=== PATIENT | female | born 1985 | race Caucasian/White ===

== ENCOUNTER 2018-02-03 14:21 | Outpatient (CLI) | payer OTHER ==
[2018-02-03 14:44] LABS: MUDS CUTOFF CONCENTRATIONS CUTOFF CONC BELOW:
[2018-02-03 14:53] LABS: BASOPHILS # (AUTO) 0.1 10^3/uL (0.0-0.1); BASOPHILS % (AUTO) 0.3 %; EOSINOPHILS # (AUTO) 0.1 10^3/uL (0.0-0.7); EOSINOPHILS % (AUTO) 0.4 %; HGB - HEMOGLOBIN 13.6 g/dL (12.0-16.0); LYMPHOCYTES # (AUTO) 2.7 10^3/uL (1.5-3.5); LYMPHOCYTES % (AUTO) 14.9 %; MEAN CORPUSCULAR HGB CONC 34.1 g/dL (32.0-36.0); MEAN CORPUSCULAR VOLUME 93.9 fL (81.0-99.0); MEAN PLATELET VOLUME 7.9 fL (7.9-10.8); MONOCYTES # (AUTO) 1.1 10^3/uL (0.0-1.0); MONOCYTES % (AUTO) 6.2 %; NEUTROPHILS # (AUTO) 13.9 10^3/uL (1.5-6.6); NEUTROPHILS % (AUTO) 78.2 %; PLT - PLATELET COUNT 351 10^3/uL (130-450); RED BLOOD COUNT 4.26 10^6/uL (4.20-5.40); WHITE BLOOD COUNT 17.8 x10^3/uL (4.8-10.8)
[2018-02-03 15:10] LABS: BILIRUBIN,URINE NEGATIVE (NEGATIVE); GLUCOSE, URINE (UA) NEGATIVE (NEGATIVE); KETONES,URINE (UA) NEGATIVE (NEGATIVE); LEUKOCYTE ESTERASE, URINE NEGATIVE (NEGATIVE); NITRITE,URINE NEGATIVE (NEGATIVE); OCCULT BLOOD,URINE NEGATIVE (NEGATIVE); PH,URINE 5.5 PH (5.0-7.5); PROTEIN,URINE NEGATIVE (NEGATIVE); UROBILINOGEN,URINE 0.2 (NORMAL) E.U./dL (NORMAL)
[2018-02-03 15:12] LABS: CLARITY,URINE CLEAR (CLEAR)
[2018-02-03 15:45] LABS: BACTERIA,URINE None Seen /HPF (None Seen); RBC,URINE 0-5 /HPF (0-5); SQUAMOUS EPITHELIAL CELL,UR RARE Squamous (<= Few)
[2018-02-03 15:46] LABS: AMPHETAMINE SCREEN,URINE NEGATIVE (NEGATIVE); BENZODIAZEPINES SCREEN, URINE NEGATIVE (NEGATIVE); COCAINE SCREEN URINE NEGATIVE (NEGATIVE); METHADONE SCREEN, URINE NEGATIVE (NEGATIVE); METHAMPHETAMINES SCREEN, URINE NEGATIVE (NEGATIVE); OPIATE SCREEN, URINE NEGATIVE (NEGATIVE); OXYCODONE SCREEN, URINE NEGATIVE (NEGATIVE); PROPOXYPHENE SCREEN, URINE NEGATIVE (NEGATIVE); TRICYCLIC ANTIDEPRESSANT,URINE NEGATIVE (NEGATIVE)
[2018-02-04 13:22] LABS: HEPATITIS C ANTIBODY NON-REACTIVE (NON-REACTIVE)
[2018-02-04 13:36] LABS: HEPATITIS B SURFACE ANTIGEN NON-REACTIVE (NON-REACTIVE)
[2018-02-04 13:47] LABS: HIV AG/AB 4TH GEN NON-REACTIVE (NON-REACTIVE)
== END 2018-02-03 14:22 | disposition home or self-care (01) ==
LOC: LAB 14:21
PROVIDERS: ATTEND Obstetrics & Gynecology
DX: Z36.9 Encounter for antenatal screening, unspecified (principal)
CPT/HCPCS: 36415; 80306; 81001; 81599; 85025; 86592; 86762; 86803; 86850; 86900; 86901; 87340; 87389

== ENCOUNTER 2018-04-05 12:09 | Outpatient (CLI) | payer SELFPAY | END 2018-04-05 12:10 | disposition home or self-care (01) | LOC: LAB 12:09 | PROVIDERS: ATTEND Obstetrics & Gynecology | DX: Z13.79 Encounter for other screening for genetic and chromosomal anomalies (principal) | CPT/HCPCS: 36415 ==

== ENCOUNTER 2018-04-28 12:27 | Outpatient (CLI) | payer OTHER ==
--- NOTE | 2018-04-28 15:30 | Ultrasound Report ---
Procedure Date: 04/28/2018 Accession Number: [id number] / [id number] Procedure: US - OB Detailed Eval CPT Code: FULL RESULT: EXAM: OB Detailed Eval DATE: 04/28/2018 2:53 PM CLINICAL HISTORY: ENCOUNTER FOR Screening, unspecified TECHNIQUE: Real-time scanning was performed with volunteer patient representative static images obtained. COMPARISON: None LAST MENSTRUAL PERIOD: 12/03/2017 Clinical Age: 20 weeks 6 days US Age: 21 weeks 2 days EFW Hadlock: 427 grams EFW % Hadlock: 77% Heart Rate: 161 bpm EDC: 09/09/2018 US EDC: 09/06/2018 BPD Hadlock: 20 weeks 6 days; Mean mm 49 HC Hadlock: 21 weeks 4 days; Mean mm 193 AC Hadlock: 21 weeks 6 days; Mean mm 169 FL Hadlock: 21 weeks 0 days; Mean mm 35 Presentation: Breech Placental Location: Posterior Cervical Length: 5.1 cm Amniotic Fluid: FROYLAN Subjectively normal cm; MVP 3.6 cm FINDINGS: Live intrauterine gestation with a heart rate of 161 bpm and a gestational age of 21 weeks and 2 days by size criteria. The placenta is low lying. The following anatomic structures were visualized and appear normal: The intracranial contents, including the ventricles and posterior fossa; the lips and orbits; the spine; the heart, including 4 chamber view and left outflow tract, and diaphragm; the abdominal contents, including the stomach, the bilateral kidneys, and urinary bladder, as well as a normal 3-vessel cord insertion; 4 limbs. The right ventricular outflow tract could not be visualized. IMPRESSION: Live intrauterine gestation of 21 weeks and 2 days by size criteria. Low-lying placenta. Follow-up imaging in the third trimester is recommended.
== END 2018-04-28 12:28 | disposition home or self-care (01) ==
LOC: DI 12:27
PROVIDERS: ATTEND Obstetrics & Gynecology
DX: Z36.9 Encounter for antenatal screening, unspecified (principal); O44.42 Low lying placenta NOS or without hemorrhage, second trimester; Z3A.21 21 weeks gestation of pregnancy
CPT/HCPCS: 76811

== ENCOUNTER 2018-07-05 11:34 | Outpatient (CLI) | payer OTHER ==
--- NOTE | 2018-07-11 08:59 | Ultrasound Report ---
Reason: 28 WEEKS GESTATION, COMPLETION OF FAS Procedure Date: 07/05/2018 Accession Number: [id number] / [id number] Procedure: US - OB F/U or Repeat CPT Code: FULL RESULT: EXAM: COMPLETE OBSTETRICAL ULTRASOUND EXAM DATE: 07/05/2018 01:06 PM. CLINICAL HISTORY: Completion of anatomic survey. LMP 12/03/2017. COMPARISON: 04/28/2018. TECHNIQUE: Real-time sonographic evaluation of the fetus performed by the corporate affairs manager. Multiple lead generation representative static images were saved for review. DATING: Established EGA 30 weeks 4 days with SAMPSON 09/09/2018 based on LMP. EGA 31 weeks 0 days with SAMPSON 09/06/2018 based on ultrasound performed on 04/28/2018. EGA 32 weeks 2 days with SAMPSON 08/28/2018 based on the current ultrasound. GENERAL EVALUATION Silverman . Cardiac activity: 142 bpm. Presentation: Cephalic. Placenta: Posterior position. No placenta previa demonstrated. Lower margin of the placenta is approximately 3.9 cm from the internal cervical os. Amniotic fluid: Normal, FROYLAN 12.7 MVP 5.0 cm. BIOMETRY Bi-Parietal Diameter (BPD): 8.0 cm, 32 weeks 2 days Head Circumference (HC): 30.0 cm, 33 weeks 1 day Abdominal Circumference (AC): 28.1 cm, 32 weeks 0 days Femur Length (FL): 6.0 cm, 31 weeks 1 day Estimated Weight: 1884 gm, 70th percentile for LMP. ANATOMY The right ventricular outflow track again cannot be visualized, secondary to positioning. MATERNAL STRUCTURES Uterus: Unremarkable. Cervix: Long and closed. Transabdominal length 5.0 cm. Right ovary/adnexa: Unremarkable. Left ovary/adnexa: Unremarkable. Free fluid: None. IMPRESSION: 1. Silverman live intrauterine with gestational age 32 weeks 2 days with SAMPSON 08/28/2018 based on current ultrasound which compares with the established SAMPSON of 09/09/2018 by LMP. 2. Estimated Weight: 1884 gm, 70th percentile for LMP. 3. right ventricular outflow track again not visualized, due to positioning. Follow-up additional views could be obtained to reassess. RAYSA
== END 2018-07-05 11:35 | disposition home or self-care (01) ==
LOC: DI 11:34
PROVIDERS: ATTEND Obstetrics & Gynecology
DX: Z34.90 Encounter for supervision of normal pregnancy, unspecified, unspecified trimester (principal); Z3A.28 28 weeks gestation of pregnancy
CPT/HCPCS: 36415; 76816; 82950; 85027; 86850

== ENCOUNTER 2018-07-05 13:04 | Outpatient (CLI) | payer OTHER ==
[2018-07-05 14:54] LABS: HGB - HEMOGLOBIN 13.1 g/dL (12.0-16.0); MEAN CORPUSCULAR HEMOGLOBIN 32.7 pg (27.0-31.0); MEAN CORPUSCULAR HGB CONC 34.2 g/dL (32.0-36.0); MEAN CORPUSCULAR VOLUME 95.7 fL (81.0-99.0); MEAN PLATELET VOLUME 7.4 fL (7.9-10.8); RED CELL DISTRIBUTION WIDTH 14.6 % (12.0-15.0); WHITE BLOOD COUNT 14.3 x10^3/uL (4.8-10.8)
== END 2018-07-05 13:05 | disposition home or self-care (01) ==
LOC: LAB 13:04
PROVIDERS: ATTEND Obstetrics & Gynecology
DX: Z34.90 Encounter for supervision of normal pregnancy, unspecified, unspecified trimester (principal)
CPT/HCPCS: 36415; 82950; 85027; 86850

== ENCOUNTER → 2018-08-09 | Outpatient (CLI) | payer OTHER | LOC: LAB.R 08:00 | PROVIDERS: ATTEND Obstetrics & Gynecology | DX: Z36.9 Encounter for antenatal screening, unspecified (principal); O60.00 Preterm labor without delivery, unspecified trimester | CPT/HCPCS: 82731; 87081 ==

== ENCOUNTER 2018-09-09 01:17 | Inpatient (IN) | payer OTHER ==
[2018-09-09 02:11] LABS: RUPTURE OF MEMBRANES PLUS POSITIVE (NEGATIVE)
[2018-09-09] MEDS ORDERED: ONDANSETRON 4 MG/2 ML VIAL IVP PRN ×2 (02:19→04:44)
[2018-09-09] MEDS ORDERED: fentaNYL 100 MCG/2 ML VIAL IVP PRN (02:19)
[2018-09-09] MEDS ORDERED: SODIUM CHLORIDE FLUSH 0.9% 10 ML SYRINGE ONE (02:31)
[2018-09-09] MEDS: LACTATED RINGERS 1,000 ML IV SCH ×5 (02:50→18:33)
[2018-09-09 02:58] LABS: BASOPHILS # (AUTO) 0.1 10^3/uL (0.0-0.1); BASOPHILS % (AUTO) 0.4 %; EOSINOPHILS # (AUTO) 0.1 10^3/uL (0.0-0.7); EOSINOPHILS % (AUTO) 0.6 %; HGB - HEMOGLOBIN 13.9 g/dL (12.0-16.0); LYMPHOCYTES # (AUTO) 2.5 10^3/uL (1.5-3.5); LYMPHOCYTES % (AUTO) 17.9 %; MEAN CORPUSCULAR HEMOGLOBIN 33.1 pg (27.0-31.0); MEAN CORPUSCULAR HGB CONC 35.1 g/dL (32.0-36.0); MEAN CORPUSCULAR VOLUME 94.5 fL (81.0-99.0); MEAN PLATELET VOLUME 8.2 fL (7.9-10.8); MONOCYTES # (AUTO) 1.1 10^3/uL (0.0-1.0); MONOCYTES % (AUTO) 7.8 %; NEUTROPHILS # (AUTO) 10.1 10^3/uL (1.5-6.6); NEUTROPHILS % (AUTO) 73.3 %; PLT - PLATELET COUNT 268 10^3/uL (130-450); RED BLOOD COUNT 4.19 10^6/uL (4.20-5.40); RED CELL DISTRIBUTION WIDTH 14.4 % (12.0-15.0); WHITE BLOOD COUNT 13.8 x10^3/uL (4.8-10.8)
[2018-09-09] MEDS ORDERED: OXYTOCIN/SODIUM CHLORIDE 500 ML IV SCH (03:00)
[2018-09-09] MEDS ORDERED: fent/BUPIV 2 MCG/0.125% 250 ML EP ONE ×3 (03:34→20:08)
[2018-09-09] MEDS ORDERED: ROPIVACAINE 0.2% PF 20 ML AMPULE ONE ×3 (04:07→18:53)
[2018-09-09] MEDS ORDERED: LACTATED RINGERS 500 ML IV ONE (04:44)
[2018-09-09] MEDS ORDERED: NALOXONE 0.4 MG/ML VIAL IVP PRN (04:44)
[2018-09-09] MEDS ORDERED: NALBUPHINE 10 MG/ML AMP IVP PRN (04:44)
[2018-09-09] MEDS ORDERED: ePHEDrine 50 MG/ML VIAL IVP PRN (04:44)
[2018-09-09] MEDS ORDERED: METOCLOPRAMIDE 10 MG/2 ML VIAL IVP PRN (04:44)
[2018-09-09] MEDS ORDERED: diphenhydrAMINE INJ 50 MG/ML VIAL IVP PRN (04:44)
[2018-09-09] MEDS: OXYTOCIN/SODIUM CHLORIDE 500 ML IV SCH (05:59)
--- NOTE | 2018-09-09 07:11 | HISTORY & PHYSICAL EXAMINATION ---
DATE OF SERVICE: 09/09/2018 Physician: Rashad Heck MD DIAGNOSIS: Term (40 weeks 0 days) in labor. HISTORY OF PRESENT ILLNESS: The patient is a 33-year-old primigravida at 40 weeks and 0 da ys gestation based on certain LMP of 12/03/2016, yielding an EDC of 09/09/2018, that was confirmed by 8-week ultrasound. She [facility] with a total of 12 visits. This morning, she reported possible early leaking, but definitely ruptured her membranes at 0050 hours th is morning with concomitant contractions. She reports no fevers or chills, recent illness or signs o r symptoms of preeclampsia. Initially, she was very uncomfortable and epidural ordered. LABS: Blood type A positive, antibody screen negative. RPR negative, rubella immune, hepat itis B antigen negative, GBS negative. Glucose challenge test normal at 117, 28-week hemoglobin 13. 1. The patient's course was unremarkable. A 20-week ultrasound showed a low-lying placenta without previa, but did not visualize a right ventricular outflow tract. Followup ultrasound confir med normal anatomy. PAST MEDICAL HISTORY: No chronic disease history. PAST SURGICAL HISTORY: No surgical history. ALLERGIES: NO KNOWN DRUG ALLERGIES. MEDICATIONS: vitamins with iron. FAMILY HISTORY: No congenital anomalies or inheritable diseases. SOCIAL HISTORY: Reformed smoker, quit 5 years ago. No drug or tobacco use. Stable relationship. F ather of the baby Felix Alfonso. REVIEW OF SYSTEMS: CONSTITUTIONAL: Negative. HEENT: Negative. CARDIOVASCULAR: Heart negative. RESPIRATORY: Lungs negative. GASTROINTESTINAL: Negative. GENITOURINARY: Reference HPI and record. MUSCULOSKELETAL: Negative. NEUROLOGIC: Negative. LYMPHATIC/HEMATOLOGIC: Negative. PHYSICAL EXAMINATION: GENERAL: Currently, lying comfortably in bed with the father of baby in attendance. VITAL SIGNS: T-max 98.1, blood pressure 149/76, but stabilized 117/67, respirations 18, pulse satura tion 100. HEENT: Supple neck. EOMI. No icterus. Normal thyroid. Normal dentition. CARDIAC: Regular, no murmur. No gallop. BREASTS: Deferred. ABDOMEN: Soft, nontender. No right upper quadrant or epigastric tenderness. UTERUS: Minimal intensity contractions every 3-4 minutes. Normal resting tone. No point tenderness . Fetus confirmed in vertex presentation. Estimated weight 8-8-1/2 pounds. GENITALIA: No lesions. VAGINA: Clear, nonfoul amniotic fluid. Cervix 100% effaced, 1.5 cm, -2 station, suspect OP. BONY PELVIS: Average gynecoid. Normal spines. OBSTETRICAL: Conjugate 12.5 x 2, burst diameter 10.5. EXTREMITIES: Nonedematous. No calf tenderness. NEUROLOGIC: Patellar reflexes 3+ and equal. No clonus. SKIN: Warm and dry. No rashes or lesions found. LABORATORIES: Admission hemoglobin 13.9 with white count of 13.8, platelets of 268. ASSESSMENT: This is a term , in labor, with very mild contractions and will require augment ation to achieve forward progress. Anticipate the pelvis is adequate for 8-pound fetus. Possibly oc ciput posterior position may make the labor and delivery a bit more difficult. PLAN: 1. Continue epidural. 2. Supportive care. 3. Augmentation. TD: 09/09/2018 05:07
[2018-09-09] MEDS ORDERED: LIDOCAINE 1% 50 ML MDV ONE (11:50)
[2018-09-09] MEDS ORDERED: MINERAL OIL LIGHT 10 ML MC ONE (11:50)
[2018-09-09] MEDS ORDERED: ACETAMINOPHEN 325 MG TABLET PO PRN (13:28)
--- NOTE | 2018-09-09 15:46 | PROVIDER PROGRESS NOTE ---
Labor Progress Note - Uterine Monitoring Uterine Monitoring Mode: positive: External toco Contraction Frequency (min/apart): Every 2.5-3 minutes Contraction Intensity: positive: Moderate (Patient with augmented labor Pitocin level 4 units) Uterine Resting Tone: positive: Soft - Monitoring Monitor Mode: positive: External ultrasound Heart Rate Baseline: 130 Heart Rate Variability: positive: Absent; amplitude undetectable Accelerations: positive: Present, 15x15 Decelerations: positive: None - Vaginal Exam Dilation (in cm): 6 Effacement (%): 100% Station: -1 Cervical Position: Midposition (ROP presentation) - Labor Progress Note Labor Progress Note/Additional Text: Patient has excellent epidural pain relief. Anticipate the head to correct to an OA once descent occurs beyond the spines. If not will do manual rotation maneuver. Discussed situation with family and nursing staff. Clinically patient has adequate labor pattern and there are no concerns about well- being based on the tracing.
[2018-09-09] MEDS ORDERED: fentaNYL 100 MCG/2 ML VIAL ONE (18:45)
--- NOTE | 2018-09-09 19:49 | PROVIDER PROGRESS NOTE ---
Labor Progress Note - Uterine Monitoring Uterine Monitoring Mode: positive: External toco Contraction Intensity: positive: Moderate Uterine Resting Tone: positive: Soft - Monitoring Monitor Mode: positive: External ultrasound Heart Rate Baseline: 135 Heart Rate Variability: positive: Moderate (6-25 bmp) Accelerations: positive: Present, 15x15 Decelerations: positive: None, Early Strip Review: positive: Category I - Vaginal Exam Dilation (in cm): 8-9 Effacement (%): 100% Station: 1 Cervical Position: Anterior - Labor Progress Note Labor Progress Note/Additional Text: Patient making forward progress with augmentation. Descent of the vertex is encouraging. No concerns about well-being based on heart tracing. However, there is light meconium and therefore RT will attend the delivery.
--- NOTE | 2018-09-09 22:25 | PROVIDER PROGRESS NOTE ---
Labor Progress Note - Uterine Monitoring Uterine Monitoring Mode: positive: External toco Contraction Frequency (min/apart): Every 3 minutes Contraction Intensity: positive: Moderate Uterine Resting Tone: positive: Soft - Monitoring Monitor Mode: positive: External ultrasound Heart Rate Baseline: [id number] Heart Rate Variability: positive: Minimal (0-5 bpm) (Recently variability decreased from moderate to minimal then back to moderate), Moderate (6-25 bmp) Accelerations: positive: Present, 15x15 Decelerations: positive: Early Strip Review: positive: Category II - Vaginal Exam Dilation (in cm): 10 Effacement (%): 100% Station: 2 Cervical Position: Anterior - Labor Progress Note Labor Progress Note/Additional Text: Patient is progressing slowly by laboring down. External monitor tracing has changed to category 2, which prompts us to begin pushing. Reviewed pushing techniques with the patient and . Due to light meconium respiratory therapy will be on standby.
[2018-09-09] MEDS ORDERED: ZOLPIDEM 5 MG TABLET PO PRN (22:28)
[2018-09-09] MEDS ORDERED: diphenhydrAMINE 25 MG CAPSULE PO PRN (22:28)
[2018-09-09] MEDS ORDERED: LACTATED RINGERS 1,000 ML IV SCH (23:00)
--- NOTE | 2018-09-09 23:37 | PROVIDER PROGRESS NOTE ---
Labor Progress Note - Uterine Monitoring Contraction Frequency (min/apart): Every 2.5-3 minutes Contraction Intensity: positive: Moderate Uterine Resting Tone: positive: Soft - Monitoring Monitor Mode: positive: External ultrasound Heart Rate Baseline: [id number] Heart Rate Variability: positive: Minimal (0-5 bpm) Accelerations: positive: Present, 15x15 Decelerations: positive: Early Strip Review: positive: Category II - Vaginal Exam Dilation (in cm): 10 Effacement (%): 100% Station: 2 (Moderate amount of caput swelling; presentation seems OA currently;) Cervical Position: Anterior - Labor Progress Note Labor Progress Note/Additional Text: Patient has pushed with excellent effort and has been well coached by nursing and her . The head is not appreciably advanced beyond +2 station and a moderate amount of It is now forming. heart tones occasionally have minimal variability but due to respond to scalp stim. Continued labor and pushing may challenge reserve. Fluid is mild meconium and has a pungent smell that was not present on presentation/admission. Patient may benefit with vacuum delivery or forceps. Prior to instrumental delivery I would like to alert pediatrics. If strip degenerates will moved to instrumental delivery immediately and alert OR team.
[2018-09-10] MEDS ORDERED: CITRIC ACID/SODIUM CITRATE 15 ML UDC PO ONE (00:39)
[2018-09-10] MEDS ORDERED: LACTATED RINGERS 1,000 ML IV ONE ×3 (00:40→02:03)
[2018-09-10] MEDS ORDERED: ceFAZolin 3 GM in SODIUM CHLORIDE 0.9% 100ML 100 ML IV ONE (00:43)
[2018-09-10] MEDS: CITRIC ACID/SODIUM CITRATE 15 ML UDC PO ONE (00:45)
[2018-09-10] MEDS ORDERED: ceFAZolin 1 GM VIAL ONE ×2 (00:46→00:47)
[2018-09-10] MEDS ORDERED: ceFAZolin 2 GM/50 ML 0 GM/0 ML BAG IV ONE (00:46)
[2018-09-10] MEDS ORDERED: METHYLERGONOVINE 0.2 MG/ML AMP IVP ONE ×2 (02:10)
[2018-09-10] MEDS ORDERED: SODIUM CHLORIDE FLUSH 0.9% 10 ML SYRINGE IVP PRN (02:10)
[2018-09-10] MEDS ORDERED: HYDROCORTISONE/PRAMOXINE 10 GM PR PRN (02:10)
[2018-09-10] MEDS ORDERED: CARBOPROST TROMETHAMINE 250 MCG/ML AMP IM ONE ×3 (02:10)
[2018-09-10] MEDS ORDERED: WITCH HAZEL/GLYCERIN 1 EACH MED..PAD TOP PRN (02:10)
[2018-09-10] MEDS ORDERED: miSOPROStol 200 MCG TABLET PO ONE (02:10)
--- NOTE | 2018-09-10 02:18 | OPERATIVE REPORT ---
Operative Report - General Admit Date: 09/09/18 Planned Procedure: Primary section if vacuum delivery trial Fails Pre-Op Diagnosis: 40w EGA; Meconium and labor; Arrested descent in 2nd Stage; EFM Tachy Procedure Performed: Primary lower segment transverse section; Abandoned low vacuum delivery without rotation Post Op Diagnosis: Same as above await placental pathology - Procedure Note Primary Surgeon: Rashad Heck MD, FACOG, FICS Secondary Surgeon: Kenia Caceres, certified nurse assistant head cashier Anesthesia Provider: Angelika Knutson certified nurse strapper and buffer Anesthesia Technique: Epidural Pathology: Placenta sent to pathology to rule out chorion amnionitis IV Fluids (mL): 1,500 Estimated Blood Loss (mL): 1,500 Urine Output (mL): 120 Drain/Tube Type: Other (Hutchinson catheter; Wound VAC) Complications: Uterne Atony
[2018-09-10] MEDS ORDERED: KETOROLAC 30 MG/ML VIAL IVP ONE (02:30)
[2018-09-10] MEDS: LACTATED RINGERS 1,000 ML IV SCH ×2 (03:45→11:59)
[2018-09-10] MEDS: SIMETHICONE CHEW 80 MG TABLET PO SCH ×3 (06:25→20:34)
[2018-09-10] MEDS: ACETAMINOPHEN 500 MG TABLET PO SCH ×2 (08:15→16:47)
[2018-09-10] MEDS: IBUPROFEN 600 MG TABLET PO SCH ×4 (08:16→20:34)
[2018-09-10] MEDS: DOCUSATE SODIUM 100 MG CAPSULE PO SCH ×2 (08:16→20:34)
[2018-09-10 08:25] LABS: BASOPHILS % (AUTO) 0.1 %; EOSINOPHILS # (AUTO) 0.1 10^3/uL (0.0-0.7); EOSINOPHILS % (AUTO) 0.4 %; HGB - HEMOGLOBIN 9.2 g/dL (12.0-16.0); LYMPHOCYTES # (AUTO) 1.6 10^3/uL (1.5-3.5); LYMPHOCYTES % (AUTO) 7.4 %; MEAN CORPUSCULAR HEMOGLOBIN 33.2 pg (27.0-31.0); MEAN CORPUSCULAR HGB CONC 34.5 g/dL (32.0-36.0); MEAN CORPUSCULAR VOLUME 96.2 fL (81.0-99.0); MEAN PLATELET VOLUME 7.8 fL (7.9-10.8); MONOCYTES # (AUTO) 1.5 10^3/uL (0.0-1.0); MONOCYTES % (AUTO) 6.9 %; NEUTROPHILS # (AUTO) 18.8 10^3/uL (1.5-6.6); NEUTROPHILS % (AUTO) 85.2 %; PLT - PLATELET COUNT 189 10^3/uL (130-450); RED BLOOD COUNT 2.77 10^6/uL (4.20-5.40); RED CELL DISTRIBUTION WIDTH 14.5 % (12.0-15.0)
--- NOTE | 2018-09-10 08:25 | OPERATIVE REPORT ---
DATE OF SERVICE: 09/10/2018 Physician: Rashad Heck MD PREOPERATIVE DIAGNOSES: 1. 40-week gestation; 2. Ruptured membranes w light meconium, possible prolonged rupture; 3. Arrest of descent in the second stage of labor; 4. Abandoned low vacuum attempt. POSTOPERATIVE DIAGNOSES: 1. Same as above 2. macrosomia 3. Moderate meconium PROCEDURE: Primary lower segment transverse section yielding a living male infant; Abandoned low vacuum delivery; Await pathology report. SURGEON: Rashad Heck MD, FACOG, FICS GAS SINGER: Kenia Caceres, Certified Nurse Cashier General. ANESTHESIA TYPE/PROVIDER: Epidural. Angelika Knutson, Certified Nurse Central Office Operator. SCANNING TECH: Dr. Angelika Harrison, Pediatrics PATHOLOGY: Placenta sent for analysis. IV FLUIDS: 1500. ESTIMATED BLOOD LOSS: 1500 to 1600 URINE OUTPUT: 120, some blood streaking. DRAINS 1. Hutchinson catheter to gravity. 2. Wound VAC. COMPLICATIONS: Uterine atony. FINDINGS: 1. At 0114 hours, a living male was born scoring Apgars of 8/9. He weighed 4173grams (9 pounds 3.2 ounces). Arterial cord pH 7.36, base excess - 3.4, venous cord pH 7.24, base excess -4.2. Fetus was born from the OA position. There was no obvious trauma or congenital anomalies. Dr. Angelika Harrison was in attendance. Placenta was removed intact with three-vessel cord. Cord entanglement was not a factor. Placenta was grade 2 without any evidence of abruption. There was no meconium staining; however, there was moderate meconium present. The amniotic fluid had a pungent smell. Cultures of the amniotic side of the placenta were taken. 2. Both tubes and ovaries appeared to be normal. Ovaries had cystic and decidual activity present. There was no scarification of the tubes or for that matter intraabdominal adhesions. The myometrium was without fibroids, but hyperemic and warm. The uterus did not respond to massage and remained atonic. Hemabate was given IM and afterwards the uterus slowly responded. TECHNIQUE: Prior to initiating section, a vacuum trial was performed. Prior to the trial, I reviewed the risks and benefits including possibility of increased blood loss, transfusion, infection, shoulder dystocia, traumatic and need for episiotomy or vaginal laceration. The major advantage would be to salvage a vaginal delivery to prevent the need for future repeat sections. After explanation and brief discussion, and the patient gave her verbal consent. Prior to the vacuum trial, Pediatrics. assistant golf course superintendent, OR crew and Anesthesiahad been called in . All parties were in the house and ready in case the vacuum trial failed. The was assessed and felt to be 8 pounds in weight. The head was originally in ROP, but during the second stage, I had rotated it manually to the OA. There was good flexion. heart tones were in the 160s to 165 with minimal / diminished variability. The patient had good reserve. she was willing and felt capable to push and assist in the delivery. Once again, the pelvis was assessed and not felt to be contracted. OB conjugate was +12.5, bituberous diameter +10.5. Normal arch and spines. A Kiwi vacuum cup was placed on the flexion point. Station was +2 and dilation complete. A moderate amount of traction was placed respecting the axis of the maternal bony pelvis. Traction did not produce the expected descent. Two pulls were attempted and the trial abandoned in favor of section. Decision to perform section was at 0035. The patient was prepped with Hutchinson catheter, Bicitra, and informed consent reviewed. 2 units of packed red blood cells were placed on hold. Again, the patient was aware of possibility of bleeding with transfusion, infection, damage to bladder, bowel or reproductive tract. Informed consent paperwork was signed. The patient was brought to the operating room and placed in the supine position on the OR table. Anesthesia redosed through her epidural catheter. She was prepped and draped in the customary sterile fashion. A timeout briefing was done per protocol. Father was brought into the room to attend to the patient. A curvilinear incision was made and the abdominal wall opened uneventfully with Pfannenstiel incision. There were numerous small bleeders that were clamped and cauterized. Once inside of the abdomen, the position of the fetus was assessed. Bladder flap was developed with Metzenbaum scissors. Note, the bladder was quite high. Afterwards, the hysterotomy was made with a scalpel. At the time of amniotic membrane entry, moderate meconium spilled forth, and the fluid seemed to have a pungent smell. Life Educator secured the vertex with right hand, then guided it through the hysterotomy and laparotomy wound with the aid of fundal pressure provided by the machine operator assistant. Shoulders were atraumatically delivered. Cord was doubly clamped, transected. Cord blood and cord gas samples were sent. The was handed to the awaiting tool design drafter. The uterus was exteriorized and inspected. There was a significant atony, and therefore immediate dose of Hemabate was given, followed by another within 15 minutes. The uterus slowly responded to Hemabate and massage. The hysterotomy wound was closed in 2 parts, first with an interlocking stitch of 0 Vicryl, followed by an imbricating stitch of 0 Vicryl in a Cardinal fashion. During the delivery & closure procedure, the OR lights went out on 4 occasions. Lights were recovered within 30 seconds or less in each event. We continued our forward progress. The uterus was inspected and the abdominal cavity was lavaged with warm normal saline. Bladder flap was not closed because of the high-riding bladder posing a hazard for the next surgeon. The uterus was returned to its normal position. Colic gutters were inspected as well as all operative sites. All sites were secure. Abdominal peritoneum was closed with a running suture of 2-0 chromic. Rectus muscle was tacked together in 3 locations with 0 Vicryl. Fascia was closed with a running stitch of 0 Vicryl in 2 parts. Subcuticular space was closed with interrupted sutures of 2-0 chromic. Skin was closed loosely with a subcuticular stitch of 4-0 Monocryl. The skin wound was dressed with a wound VAC. At the end of the closure, all sponge, needle, and instrument counts were confirmed as correct. Patient was uneventfully aroused and taken to the recovery room in good condition. Anticipate patient to be anemic and therefore, there are 2 units of packed red blood cells on hold. Additionally, we will continue Ancef 2 grams every 8 hours for at least 24 more hours. Discussed the findings with Dr. Harrison, who will manage a workup of the fetus as necessary. TD: 09/10/2018 02:59 [facility] CENTERMyrtle
[2018-09-10] MEDS: SODIUM CHLORIDE FLUSH 0.9% 10 ML SYRINGE IVP PRN ×3 (08:29→10:36)
[2018-09-10 09:07] LABS: PLATELET ESTIMATE, MANUAL NORMAL (130-450,000) (NORMAL); RBC MORPHOLOGY (MULTIPLE) NORMAL APPEARANCE (NORMAL)
[2018-09-10] MEDS: ceFAZolin 2 GM in SODIUM CHLORIDE 0.9% MINIBAG 100 ML IV SCH ×2 (10:01→19:27)
[2018-09-10] MEDS: OXYTOCIN/SODIUM CHLORIDE 500 ML IV SCH (10:16)
[2018-09-10] MEDS: SODIUM CHLORIDE FLUSH 0.9% 10 ML SYRINGE IVP SCH (10:17)
[2018-09-10] MEDS: oxyCODONE 5 MG TABLET PO PRN (14:21)
[2018-09-10] MEDS: HYDROcod/ACETAM 5/325 MG TABLET PO PRN ×2 (19:27→23:10)
[2018-09-11] MEDS: ceFAZolin 2 GM in SODIUM CHLORIDE 0.9% MINIBAG 100 ML IV SCH ×2 (02:49→10:13)
[2018-09-11] MEDS: HYDROcod/ACETAM 5/325 MG TABLET PO PRN ×4 (02:49→14:01)
[2018-09-11] MEDS: IBUPROFEN 600 MG TABLET PO SCH ×4 (02:49→21:12)
[2018-09-11] MEDS: ACETAMINOPHEN 500 MG TABLET PO SCH ×2 (05:50→18:09)
[2018-09-11] MEDS: SIMETHICONE CHEW 80 MG TABLET PO SCH ×3 (06:19→18:09)
[2018-09-11 08:12] LABS: BASOPHILS % (AUTO) 0.2 %; EOSINOPHILS # (AUTO) 0.2 10^3/uL (0.0-0.7); EOSINOPHILS % (AUTO) 1.5 %; HGB - HEMOGLOBIN 8.6 g/dL (12.0-16.0); LYMPHOCYTES # (AUTO) 2.3 10^3/uL (1.5-3.5); LYMPHOCYTES % (AUTO) 15.3 %; MEAN CORPUSCULAR HEMOGLOBIN 33.6 pg (27.0-31.0); MEAN CORPUSCULAR VOLUME 95.8 fL (81.0-99.0); MEAN PLATELET VOLUME 7.7 fL (7.9-10.8); MONOCYTES # (AUTO) 0.8 10^3/uL (0.0-1.0); MONOCYTES % (AUTO) 5.3 %; NEUTROPHILS # (AUTO) 11.6 10^3/uL (1.5-6.6); NEUTROPHILS % (AUTO) 77.7 %; PLT - PLATELET COUNT 196 10^3/uL (130-450); RED BLOOD COUNT 2.55 10^6/uL (4.20-5.40); RED CELL DISTRIBUTION WIDTH 14.4 % (12.0-15.0); WHITE BLOOD COUNT 14.9 x10^3/uL (4.8-10.8)
[2018-09-11 08:25] LABS: ALBUMIN 2.1 g/dL (3.2-5.5); ALBUMIN/GLOBULIN RATIO 0.8 (1.0-2.2); BILIRUBIN,TOTAL 0.2 mg/dL (0.2-1.0); CREATININE 0.7 mg/dL (0.4-1.0); TOTAL PROTEIN 4.6 g/dL (6.7-8.2)
[2018-09-11] MEDS: DOCUSATE SODIUM 100 MG CAPSULE PO SCH (09:02)
--- NOTE | 2018-09-11 09:17 | ANESTHESIA POST OP EVALUATION ---
Anesthesia Post Eval - Post Anesthesia Eval Pain Control: positive: Adequate Nausea & Vomiting: positive: Negative Mental Status: positive: Appropriate Anesthesia Complications: positive: None (Patient doing well, minimal incisional pain. I explained some low back tenderness is common after epidural for a few days, denies headache. Site clear, epidural was D/C in OR immediately after surgery by me with tip intact.)
[2018-09-11] MEDS: SODIUM CHLORIDE FLUSH 0.9% 10 ML SYRINGE IVP SCH (10:14)
--- NOTE | 2018-09-11 12:30 | PROVIDER PROGRESS NOTE ---
Subjective - General Admit Date: 09/09/18 Procedure Date: 09/10/18 Post Op Days: 1 Procedure Performed: Primary section, prior vacuum attempt - Review of Systems Wound/Incisions: positive: Dressing dry and intact, Other (Wound VAC operable) Drain Type: Hutchinson already discontinued General: positive: No symptoms, Other (Slowly regaining normal function, happy) HEENT: positive: No symptoms Pulmonary: positive: No symptoms Cardiovascular: positive: No symptoms Gastrointestinal: positive: No symptoms, Flatus Genitourinary: positive: Other (Mild non-foul lochia) Musculoskeletal: positive: No symptoms Skin: positive: No symptoms Neurological: Psychiatric: positive: No symptoms - Other Other Information/Narrative: Overall patient feels well on postoperative day 1. Her pain is controlled with combination of oral Motrin and [place]. She is nursing with out difficulty. She is ambulated about the room. She has no fevers chills, chest pain, or shortness of breath. Baby boy is doing well and is not required continued IV antibiotics. Maternal extended antibiotic was discontinued with 10 AM dose. Objective - Patient Data Vital Signs: Vital Signs x48h Temp Pulse Resp BP Pulse Ox 09/11/18 08:00 98.2 F 81 16 121/66 98 Weight: Weight 09/09/18 09/10/18 09/11/18 23:59 23:59 23:59 Weight (kg) 91.172 kg Intake & Output: Intake and Output Totals x24h 09/09/18 09/10/18 09/11/18 23:59 23:59 23:59 Intake Total 4227.5 2100 100 Output Total 2120 3940 450 Balance 2107.5 -1840 -350 - Lab Results Lab Results: 09/11/18 08:09 09/11/18 08:09 Other Lab Results: Lab Results x24hrs 09/11/18 09/11/18 Range/Units 08:09 08:09 WBC 14.9 H (4.8-10.8) x10^3/uL RBC 2.55 L (4.20-5.40) 10^6/uL Hgb 8.6 L (12.0-16.0) g/dL Hct 24.5 L (37.0-47.0) % MCV 95.8 (81.0-99.0) fL MCH 33.6 H (27.0-31.0) pg MCHC 35.0 (32.0-36.0) g/dL RDW 14.4 (12.0-15.0) % Plt Count 196 (130-450) 10^3/uL MPV 7.7 L (7.9-10.8) fL Neut # (Auto) 11.6 H (1.5-6.6) 10^3/uL Lymph # (Auto) 2.3 (1.5-3.5) 10^3/uL [place] # (Auto) 0.8 (0.0-1.0) 10^3/uL Eos # (Auto) 0.2 (0.0-0.7) 10^3/uL Baso # (Auto) 0.0 (0.0-0.1) 10^3/uL Absolute Nucleated RBC 0.00 x10^3/uL Nucleated RBC % 0.0 /100WBC Sodium 136 (135-145) mmol/L Potassium 3.6 (3.5-5.0) mmol/L Chloride 105 (101-111) mmol/L Carbon Dioxide 26 (21-32) mmol/L Anion Gap 5.0 L (6-13) BUN 6 (6-20) mg/dL Creatinine 0.7 (0.4-1.0) mg/dL Estimated GFR (MDRD) 98 (>89) Glucose 77 (70-100) mg/dL Calcium 8.0 L (8.5-10.3) mg/dL Total Bilirubin 0.2 (0.2-1.0) mg/dL AST 27 (10-42) IU/L ALT 13 (10-60) IU/L Alkaline Phosphatase 70 (42-121) IU/L Total Protein 4.6 L (6.7-8.2) g/dL Albumin 2.1 L (3.2-5.5) g/dL Globulin 2.5 (2.1-4.2) g/dL Albumin/Globulin Ratio 0.8 L (1.0-2.2) - Current Medications Current Medications: Current Medications Generic Name Dose Route Start Last Admin Trade Name Freq PRN Reason Stop Dose Admin Acetaminophen 650 mg 09/09/18 13:28 09/09/18 13:49 Tylenol PO 650 mg Q6H PRN Administration Pain or Fever > 38C (100.4F) Acetaminophen 1,000 mg 09/10/18 03:00 09/11/18 05:50 Tylenol PO Not Given Q8H STEPHANI Hydrocodone Bitart/Acetaminophen 1 tab 09/09/18 22:28 09/11/18 10:13 [place] 5/325 PO 1 tab Q4HR PRN Administration MILD PAIN Docusate Sodium 100 mg 09/10/18 09:00 09/11/18 09:02 Colace 100mg Capsule PO 100 mg BID STEPHANI Administration Oxytocin/Sodium Chloride 500 mls @ 1 mls/hr 09/09/18 05:00 09/10/18 10:16 Pitocin/Sodium Chloride IV Not Given TITR STEPHANI Protocol 1 MILLIUNIT/MIN Lactated Ringer's 1,000 mls @ 100 mls/hr 09/10/18 03:00 09/10/18 11:59 Lr IV 100 mls/hr .Q10H STEPHANI Administration Cefazolin Sodium 2 gm/ Sodium 100 mls @ 200 mls/hr 09/10/18 10:00 09/11/18 10:13 Chloride IV 200 mls/hr Q8H STEPHANI Administration Ibuprofen 600 mg 09/09/18 23:00 09/11/18 09:01 Motrin PO 600 mg Q6H STEPHANI Administration Metoclopramide HCl 10 mg 09/09/18 04:44 09/10/18 06:36 Reglan Inj IVP 10 mg Q6HR PRN Administration Nausea / Vomiting Ondansetron HCl 4 mg 09/09/18 04:44 09/10/18 08:29 Zofran Inj IVP 4 mg Q6HR PRN Administration Nausea / Vomiting Oxycodone HCl 5 mg 09/10/18 02:10 09/10/18 14:21 Roxicodone PO 5 mg Q4HR PRN Administration MODERATE PAIN Simethicone 80 mg 09/10/18 06:00 09/11/18 09:02 Mylicon PO 80 mg TID STEPHANI Administration Sodium Chloride 10 ml 09/09/18 02:19 09/10/18 10:36 Normal Saline Flush 0.9% IVP 10 ml PRN PRN Administration NEEDED PER PROVIDER ORDERS Sodium Chloride 10 ml 09/10/18 09:00 09/11/18 10:14 Normal Saline Flush 0.9% IVP 10 ml 0100,0900,1700 STEPHANI Administration Physical Exam - Physical Exam General: positive: No acute distress, Alert HEENT: positive: Moist mucous membranes Neck: positive: Supple w/out meningeal sx Abdomen: positive: Other (Benign abdominal exam; Wound VAC intact and functional) Female : positive: Normal external (Lochia reported as mild and non-fall), Enlarged uterus (Uterus is nontender and roughly 16-17 weeks size.) Extremities: positive: No pedal edema Skin: positive: Warm and dry Neurologic: positive: Alert and Oriented X 3, Normal Sensation, Normal Speech Assessment/Plan - Assessment/Plan Assessment: Patient underwent section roughly 36 hours ago and is recovering well. She experienced greater than usual amount of blood loss 1500 cc but has equilibrated to hemoglobin 8.6 and remains asymptomatic. She is breast-feeding well and recovering normal function. Plan: 1. Continue supportive care, breast-feeding coaching, and pain control. 2. Clinically there is no evidence of continued infection such as fever white count etc. I discontinued extended Ancef prophylaxis with her 10 AM dose. Gram stain of placental membranes found gram-positive cocci in chains with rare clusters. I will keep pediatrics appraised of culture results. Thus far boy has not had symptoms suggestive of sepsis or infection. 3. Patient had greater than expected blood loss of 1500 cc secondary to atony. The acne has resolved and lochia reminds mild. Patient is hemodynamically stable and this morning's hemoglobin was 8.6. Unless there is a unexpected bout of bleeding, transfusion will not be necessary.
[2018-09-11] MEDS: oxyCODONE 5 MG TABLET PO PRN ×2 (18:09→22:04)
[2018-09-12] MEDS: ACETAMINOPHEN 500 MG TABLET PO SCH ×2 (02:28→10:41)
[2018-09-12] MEDS: IBUPROFEN 600 MG TABLET PO SCH ×2 (03:02→08:59)
[2018-09-12] MEDS: oxyCODONE 5 MG TABLET PO PRN ×2 (07:05→13:07)
[2018-09-12] MEDS: SIMETHICONE CHEW 80 MG TABLET PO SCH (08:59)
[2018-09-12] MEDS: DOCUSATE SODIUM 100 MG CAPSULE PO SCH (08:59)
[2018-09-12 14:39] VITALS: BP 122/71
--- NOTE | 2018-09-12 14:57 | Labor Flowsheet ---
Labor Flowsheet Datetime Report Generated by CPN: 09/12/2018 14:56 Datetime: 09/12/2018 07:54 VITAL SIGNS NBP Sys/Ela/Mean (mmHg): 119 : 73 : 83 Pulse: 66 SpO2 (%): 96 LaborFlag: Labor Datetime: 09/10/2018 04:48 Station Vacuum/Forceps Applied: 2+ Datetime: 09/10/2018 00:45 UTERINE ACTIVITY Monitor Mode: External Frequency (min): 3-4 Quality: Moderate Duration (sec): 60-90 Pattern: Normal: <= 5 Contractions in 10 Minutes Resting Tone (Palpate): Relaxed ASSESSMENT A Monitor Mode: External US FHR Baseline Rate : 160 FHR Baseline Changes: Tachycardia Variability: Minimal - Undetectable to <=5 bpm Accelerations: None Decelerations: None Category: Category II Datetime: 09/10/2018 00:40 MEDICATIONS Pitocin (milliunits): Discontinued Datetime: 09/10/2018 00:31 I/O Interventions: [place] Cath Inserted Patient Care Comments: by Dr. Heck Datetime: 09/10/2018 00:29 VAGINAL EXAM Dilatation (cm): 10.0 Effacement (%): 100 Station: 2 STAGE 2 Pushing: Coached on Pushing Pushing Position: Pushing with Contractions Pushing Progress: No Descent with Effective Pushing Vacuum: Off Datetime: 09/10/2018 00:20 Stage 2 Comments: set up for operative vaginal delivery Datetime: 09/10/2018 00:16 Monitor Interventions for UA: [place] Adjusted Datetime: 09/09/2018 23:50 Patient Position/Activity: Right Lateral Datetime: 09/09/2018 23:29 Temperature (C): 38.1 Datetime: 09/09/2018 23:20 Actions for Decelerations: Side to Side; Oxygen Applied Datetime: 09/09/2018 23:10 Provider Notified (Name): Dr. Heck Communication Comments: @ bedside to asses pts pushing efforts Datetime: 09/09/2018 22:54 Provider Reviewed Strip: Yes COMMUNICATION Communication: Provider at Bedside Notification Reason: Labor Status Datetime: 09/09/2018 22:30 Contraction Comments: active pushing begins Datetime: 09/09/2018 22:17 Exam by: Dr. Heck Datetime: 09/09/2018 21:42 PAIN Pain Scale: 4 Pain Presence: Intermittent Pain Type: Pressure Pain Location: Perineum Pain Goal: 6 Pain Relief Measures: WINDING RACK OPERATOR Use; Comfort Measures Pain Coping: Breathing Through Contractions; Sleeping Datetime: 09/09/2018 21:13 Respirations: 22 MATERNAL ASSESSMENT Level of Consciousness: Fully Conscious Headache: Denies Nausea/Vomiting: Denies RUQ Epigastric Pain: Denies Datetime: 09/09/2018 20:30 Comments: periods of moderate variability Datetime: 09/09/2018 20:08 Anesthesia Comments: Fentanyl bag replaced Datetime: 09/09/2018 19:44 Vaginal Exam Comments: RN @ bedside to assist with SVE Datetime: 09/09/2018 19:30 Stage of : Labor Vibroacoustic Stim: Amniotic Fluid Color: Light Meconium DTR's/Clonus: DTRs 2+; No Clonus Breath Sounds, Left: Clear and Equal Breath Sounds, Right: Clear and Equal PATIENT CARE IV/Blood Work: IV Infusing per Order Comfort Measures: Breathing/Relaxation TEACHING Instructional Method: Verbal Plan of Care: Plan of Care Discussed; Vaginal Delivery Unit Routine: IV Pumps; Safety/Fall Risk Prevention; Medications Labor/Induction: Labor Stages; Meconium Pain Management: Epidural Datetime: 09/09/2018 19:15 Oxygen Method: Room Air Datetime: 09/09/2018 18:21 Epidural Procedure Other: Single Dose Datetime: 09/09/2018 18:11 Vaginal Bleeding: None Cervix, Consistency: Soft Cervix, Position: Anterior Datetime: 09/09/2018 17:20 Amniotic Fluid Amount: Small Datetime: 09/09/2018 15:15 Position 'A': Right Occipital Anterior Datetime: 09/09/2018 15:07 Anesthesia Level Check: T9 Datetime: 09/09/2018 13:51 Analgesics/Sedatives: Tylenol (mg) @ 650 Datetime: 09/09/2018 11:35 Pain Assessment Comments: resting comforable Datetime: 09/09/2018 09:46 Hygiene: Marion Care Datetime: 09/09/2018 07:01 Pitocin Checklist: No More than 1 Late Deceleration Occurred in Past 30 Minutes; No More than 2 Jeremie iable Decelerations > 60 Seconds in Duration and decreasing >60 bpm in 30 minutes; No More than 5 Edwina rine Contractions in 10 Minutes for any 20 Minute Interval; Uterus Palpates Soft between Contractions Datetime: 09/09/2018 05:31 Vital Sign Comments: Cuff on dependent arm per Dr Cline's order. To hold ephedrine dose at this ti me. Datetime: 09/09/2018 05:30 Oxygen Amount (LPM): 10 Datetime: 09/09/2018 04:08 Epidural Procedure: Loading Dose Datetime: 09/09/2018 04:01 Monitor Interventions for FHR: Ultrasound Adjusted Datetime: 09/09/2018 03:46 PROCEDURE TIME OUT Procedure Type: 0346 Procedure Verify: Correct Patient Identity; Correct Side and Site are Marked; Accurate Procedure Co nsent Form; Agreement on Procedure to be Done; Correct Patient Position; Addressed Need to Administer Antibiotics or Fluids for Irrigation; Safety Precautions Based on Patient History or Medication Use ANESTHESIA Anesthesia Plans: Epidural Epidural Positioning: Sitting Datetime: 09/09/2018 03:22 Antiemetics/Antacids: Zofran (mg) @ (Annotations: 4mg SIVP) Datetime: 09/09/2018 02:30 Membrane Status: Ruptured Membranes Ruptured Date/Time: 09/09/2018 00:50 Membranes Rupture Method: Spontaneous Amniotic Fluid Odor: Normal Pool: Positive Nitrazine: Positive ROM Test Kit: Positive Membrane Comments: SROM @ 020
--- NOTE | 2018-09-12 20:08 | DISCHARGE SUMMARY ---
Physician: Rashad Heck MD DATE OF ADMISSION: 09/09/2018 DATE OF DISCHARGE: 09/12/2018 DIAGNOSES 1. Arrest of descent in second stage of labor. 2. macrosomia. 3. Abandoned low vacuum attempt. 4. tachycardia with decreased variability. 5. Final pathology report Not consistent with chorion amnionitis 6. Uterine atony with subsequent anemia. PROCEDURE: Primary lower segment transverse section after attempted low vacuum. COMPLICATIONS: Uterine atony during , controlled with Hemabate. HISTORY: Patient is a 33-year-old primigravida at 40 weeks 0 days' gestation who reported possible leaking at 0700 the day prior to presentation. While in observation, she had gross rupture of membranes at 0050 hours and contractions. She reported no fevers, chills, or recent illness. Blood type A positive, antibody screen negative, RPR negative, rubella immune, hepatitis B surface antigen negative, GBS negative. Glucola challenge test at 117. At the time of initial evaluation, there was clear, nonfoul amniotic fluid with the cervix 1.5 cm dilated and effaced, 100% at -2 station. heart tracing is category 1. Reference typewritten [facility]. Patient was admitted and begun on Pitocin augmentation. Pitocin was delayed for an hour due to concerns of hypotension secondary to epidural placement. Epidural provided excellent pain relief, and the patient dilated to 6 cm but remained -1 station by 1530 hours. The presentation was found to be OP to ROP. Quality of uterine contractions were judged adequate. By 1900 hours, patient had progressed to 8 cm and descended to +1 station. At that time, light meconium was noted. Patient achieved completion at 2215 hours. The strip had degraded to category 2 due to decreased/minimal variability and tachycardia at 160s to 170s. Patient began pushing at this time. Respiratory Therapy was alerted. By 2330 hours, patient continued to push with excellent effort and moved the head to +2 station. Manual rotation was done to the OA position. weight was thought to be 8-8.5 pounds with an adequate pelvis. Due to heart tone changes (category 2) and meconium, Pediatrics was alerted. Preparation was made for a low vacuum delivery with OR on backup in case a section was needed. OR Crew, Cardiac Nurse, and Anesthesia were alerted and came to the hospital. With informed consent, a low vacuum attempt was made. The head did not have the expected descent with moderate traction, and therefore instrumental delivery was abandoned, and we moved immediately to section. Patient was given by Bicitra, IV antibiotics, Ancef 3 grams IV piggyback given, 2 units of blood were cross matched, informed consent process was executed. The section resulted in a living male scoring Apgars of 8 and 9, weighing 4173 grams (9 pounds 3.2 ounces). Arterial cord pH was 7.36 with base excess of -3.4. Venous cord pH was 7.24 with base excess of -4.2. Placenta was removed intact. There was moderate meconium. After removal of placenta, uterus remained atonic despite Pitocin and massage. Two doses of Hemabate were given. Total blood loss was 1500. Patient went to the recovery room in stable condition. Please reference typewritten Operative Report. In Recovery, patient did well, remaining hemodynamically stable. On the floor, she recovered her normal self-care functions and was advanced to full diet. She remained afebrile, normotensive and had a pulse that varied between 66 and 81. Initial hemoglobin was 13.9 and 6 hours postoperative 9.2, finally equilibrating at 8.6 thirty hours post procedure. As expected, white count was elevated initially after the surgery at 22.0 with a toxic granulation seen. Platelets remained within the normal range. Patient slowly began and developed a good technique. Unfortunately, milk letdown was meager. Gram stain of amniotic membranes found urogenital tena. Final culture pending. Reviewed final pathology report on placenta and there is no evidence of chorion amnionitis. Total placental weight 574 g. By postoperative day #2, patient felt well and desired discharge home. was cleared by Dr. Harrison for home discharge. Warning sign and callback instructions were reviewed. DISCHARGE MEDICATIONS 1. Motrin 600 q.6 hours initially scheduled, then p.r.n. 2. [place] 5/325 q.4 hours oral p.r.n. breakthrough pain. 3. Colace 250 b.i.d. 4. Lactulose 10 grams q.a.m. 5. Supplemental iron 325 b.i.d. 6. vitamins. FOLLOWUP 1. Followup will be in 1 week to remove wound VAC. At that time, progress with will be reviewed. 2. The visit in 1-2 days. 3. Final visit in 4-6 weeks. TD: 09/12/2018 13:42 MTDD
== END 2018-09-12 13:15 | disposition home or self-care (01) | DRG 787 ==
LOC: WFO 01:17 → FBP 01:18 → WFO 02:04 → FBP 02:05
PROVIDERS: ADMIT Obstetrics & Gynecology; ATTEND Obstetrics & Gynecology
PROC: 0W3R0ZZ Control Bleeding in Genitourinary Tract, Open Approach (ICD-10-PCS; 2018-09-10)
PROC: 10D00Z1 Extraction of Products of Conception, Low, Open Approach (ICD-10-PCS; principal; 2018-09-10 00:36)
DX: O64.0XX0 Obstructed labor due to incomplete rotation of fetal head, not applicable or unspecified (principal); O72.1 Other immediate postpartum hemorrhage; O66.2 Obstructed labor due to unusually large fetus; O77.0 Labor and delivery complicated by meconium in amniotic fluid; O76 Abnormality in fetal heart rate and rhythm complicating labor and delivery; O62.1 Secondary uterine inertia; O90.81 Anemia of the puerperium; D50.0 Iron deficiency anemia secondary to blood loss (chronic); Z3A.40 40 weeks gestation of pregnancy; Z37.0 Single live birth; Z87.891 Personal history of nicotine dependence
CPT/HCPCS: 36415; 80053; 84112; 85025; 86850; 86900; 86901; 86920; 87070; 87205; 99213

== ENCOUNTER 2019-12-28 16:49 | Outpatient (CLI) | payer OTHER ==
--- NOTE | 2019-12-29 06:15 | Ultrasound Report ---
Reason: POSITIVE TEST Procedure Date: 12/28/2019 Accession Number: [id number] / [id number] Procedure: US - OB First Trimester CPT Code: Final Report FULL RESULT: EXAM: FIRST TRIMESTER OBSTETRIC ULTRASOUND (Less than 11 weeks) EXAM DATE: 12/28/2019 05:18 PM. CLINICAL HISTORY: POSITIVE TEST. LMP: 11/11/2019. COMPARISONS: None. TECHNIQUE: Transabdominal and transvaginal ultrasound examination with static image documentation. CLINICAL DATES: EGA 6 weeks 5 days with SAMPSON 08/17/2020 based on LMP. ASSESSMENT: Gestational Sac: Single intrauterine. Mean gestational sac diameter: 26 mm = 7 weeks 4 days. Embryo: CRL (crown-rump length) 8 mm = 6 weeks 5 days. Cardiac activity: 142 beats per minute. Yolk sac: 4-5 mm. Amniotic fluid: Not accurately assessed at this gestational age. Early placenta: Not visible at this gestational age. Other: Small perigestational collection measures 1.0 x 0.5 cm. MATERNAL STRUCTURES: Uterus: Anteverted. Unremarkable. Cervix: Closed. Right Ovary/Adnexa: The ovary measures 3.4 x 2.1 x 3.5 cm, volume 13.3 cc. Corpus luteum measuring 2.0 x 2.1 x 2.0 cm. Left Ovary/Adnexa: The ovary measures 2.4 x 1.2 x 1.6 cm, volume 2.4 cc. Unremarkable. Free Fluid: None. Other: None. IMPRESSION: 1. Single viable intrauterine at EGA 6 weeks 5 days with SAMPSON 08/17/2020 based on crown-rump length, which is concordant with clinical dates. 2. Assigned dating is SAMPSON 08/17/2020 based on LMP. RAYSA
== END 2019-12-28 16:50 | disposition home or self-care (01) ==
LOC: DI 16:49
PROVIDERS: ATTEND Nurse Practitioner Obstetrics & Gynecology
DX: Z32.01 Encounter for pregnancy test, result positive (principal)
CPT/HCPCS: 76801; 76817

== ENCOUNTER 2020-02-05 08:00 | Outpatient (CLI) | payer OTHER, MEDICAID ==
[2020-02-05 21:05] LABS: TRICHOMONAS VAGINALIS DNA NEGATIVE (NEGATIVE)
== END 2020-02-05 23:59 | disposition home or self-care (01) ==
LOC: LAB.R 08:00
PROVIDERS: ATTEND Advanced Practice Midwife
DX: Z34.80 Encounter for supervision of other normal pregnancy, unspecified trimester (principal)
CPT/HCPCS: 87491; 87591; 87661

== ENCOUNTER 2020-02-06 10:42 | Outpatient (CLI) | payer OTHER, MEDICAID ==
[2020-02-06 12:19] LABS: BASOPHILS % (AUTO) 0.4 %; EOSINOPHILS # (AUTO) 0.1 10^3/uL (0.0-0.7); EOSINOPHILS % (AUTO) 0.6 %; HGB - HEMOGLOBIN 12.3 g/dL (12.0-16.0); LYMPHOCYTES # (AUTO) 1.5 10^3/uL (1.5-3.5); LYMPHOCYTES % (AUTO) 13.8 %; MEAN CORPUSCULAR HEMOGLOBIN 30.1 pg (27.0-31.0); MEAN CORPUSCULAR HGB CONC 31.6 g/dL (32.0-36.0); MEAN CORPUSCULAR VOLUME 95.1 fL (81.0-99.0); MEAN PLATELET VOLUME 10.7 fL (7.9-10.8); MONOCYTES % (AUTO) 9.2 %; NEUTROPHILS % (AUTO) 75.3 %; PLT - PLATELET COUNT 325 10^3/uL (130-450); RED BLOOD COUNT 4.09 10^6/uL (4.20-5.40); RED CELL DISTRIBUTION WIDTH 13.6 % (12.0-15.0); WHITE BLOOD COUNT 10.6 x10^3/uL (4.8-10.8)
[2020-02-07 10:26] LABS: HEPATITIS B SURFACE ANTIGEN NON-REACTIVE (NON-REACTIVE)
[2020-02-07 10:40] LABS: HEPATITIS C ANTIBODY NON-REACTIVE (NON-REACTIVE)
[2020-02-07 15:15] LABS: HIV AG/AB 4TH GEN NON-REACTIVE (NON-REACTIVE)
== END 2020-02-06 23:59 | disposition home or self-care (01) ==
LOC: LAB.WCP 10:42
PROVIDERS: ATTEND Advanced Practice Midwife
DX: Z34.80 Encounter for supervision of other normal pregnancy, unspecified trimester (principal)
CPT/HCPCS: 36415; 81599; 85025; 86592; 86762; 86803; 86850; 86900; 86901; 87340; 87389

== ENCOUNTER 2020-03-04 11:48 | Outpatient (CLI) | payer OTHER, MEDICAID ==
[2020-03-04 14:51] LABS: HB2 TOTAL 13.7 g/dL; HEMOGLOBIN A1C 0.38 g/dL; HEMOGLOBIN A1C % 4.7 % (4.6-6.2)
== END 2020-03-04 23:59 | disposition home or self-care (01) ==
LOC: LAB.WCP 11:48
PROVIDERS: ATTEND Obstetrics & Gynecology
DX: Z34.80 Encounter for supervision of other normal pregnancy, unspecified trimester (principal); Z36.88 Encounter for antenatal screening for fetal macrosomia
CPT/HCPCS: 36415; 81599; 82105; 82947; 83036

== ENCOUNTER 2020-03-15 14:09 | Outpatient (CLI) | payer MEDICAID ==
--- NOTE | 2020-03-16 14:10 | Ultrasound Report ---
Reason: SCREENING Procedure Date: 03/15/2020 Accession Number: [id number] / [id number] Procedure: US - OB Detailed Eval CPT Code: Final Report FULL RESULT: EXAM: COMPLETE OBSTETRICAL ULTRASOUND EXAM DATE: 03/15/2020 05:20 PM. CLINICAL HISTORY: anatomic survey. COMPARISON: Obstetric ultrasound from 12/28/2019. TECHNIQUE: Real-time sonographic evaluation of the fetus performed by the licensed club manager. Multiple dealer compliance representative static images were saved for review. DATING: Established EGA 17 weeks 6 days with SAMPSON 08/17/2020 based on LMP. EGA 19 weeks 2 days with EDC 08/07/2020 based on EDC on the order requisition. EGA 19 weeks 0 days with SAMPSON 08/09/2020 based on the current ultrasound. GENERAL EVALUATION [place] . Cardiac activity: 173 bpm. movement: Visualized. Presentation: Variable. Placenta: Posterior position. Placenta is low lying by transabdominal examination, approximately 1.1 cm from the internal cervical os. Umbilical cord: 3 vessel cord. Central placental cord origin. Amniotic fluid: Subjectively normal. MVP 3.7 cm. BIOMETRY Bi-Parietal Diameter (BPD): 4.4 cm, 19 weeks 2 days Head Circumference (HC): 16.6 cm, 19 weeks 2 days Abdominal Circumference (AC): 13.8 cm, 19 weeks 2 days Femur Length (FL): 2.9 cm, 18 weeks 6 days Estimated Weight: 274 g. Note that gestational age is somewhat ambiguous. Based on LMP and first trimester ultrasound, fetus is at 17 weeks 6 days gestation. However, referring provider reports EDC of 08/07/2020 on the requisition, yielding a gestational age of 19 weeks 2 days. For a gestational age of 17 weeks 6 days, EFW is at the 96th percentile. For a gestational age of 19 weeks 2 days, EFW is at the 34th percentile. ANATOMY Due to position, several anatomic structures are not well evaluated. Four-chamber view of the heart and RVOT views are suboptimal. Leg-foot relationship is not well seen bilaterally. Intracranial structures, profile, face/nose/lips, spine, LVOT, stomach, abdominal wall and cord insertion, diaphragm, kidneys, bladder, and the remainder of the upper extremities were visualized and demonstrate no abnormality. MATERNAL STRUCTURES Uterus: Unremarkable. Cervix: Long and closed. Transabdominal length 7.8 cm. Right ovary/adnexa: Unremarkable. Left ovary/adnexa: Unremarkable. Free fluid: None. IMPRESSION: 1. [place] live intrauterine in variable presentation. Gestational age is ambiguous based on provided EDC, LMP, and prior ultrasound. Based on EDC of 08/07/2020 by the referring provider, fetus is at 19 weeks 2 days gestation. However, based on EDC of 08/17/2020 by first trimester ultrasound and LMP, gestational age is 17 weeks 6 days. 2. Estimated weight is at the 34th percentile for gestational age of 19 weeks 2 days. However, estimated weight is at the 96th percentile for gestational age of 17 weeks 6 days. 3. Four-chamber view of the heart, right ventricular outflow tract, and sagittal views of both lower extremities (demonstrating leg-foot relationship) are not well seen. Recommend follow-up ultrasound in 1-2 weeks to reevaluate these structures. 4. Remainder of anatomy is unremarkable. No anatomic abnormalities are detected at this time. 5. Posterior, low lying placenta. Recommend transvaginal examination at the time of 1-2 week follow-up ultrasound to better evaluate placental location. Occasionally, transvaginal ultrasound results in reclassification of placental location. RADIA
== END 2020-03-15 14:10 | disposition home or self-care (01) ==
LOC: DI 14:09
PROVIDERS: ATTEND Obstetrics & Gynecology
DX: Z36.89 Encounter for other specified antenatal screening (principal)
CPT/HCPCS: 76811

== ENCOUNTER 2020-05-13 16:46 | Outpatient (CLI) | payer MEDICAID ==
--- NOTE | 2020-05-14 18:06 | Ultrasound Report ---
PROCEDURE: OB F/U or Repeat INDICATIONS: LOW LYING PLACENTA OUTSIDE/PRIOR DATING DATA: Last menstrual period (LMP): 12/12/2019. LMP-based estimated date of delivery (SAMPSON): 08/17/2020. First dating scan (date and location): 12/28/2019. Estimated date of delivery (SAMPSON) from first dating scan: 08/17/2020. TECHNIQUE: Real-time scanning was performed of the fetus, with image documentation and biometric measurements. Endovaginal scanning: Not performed COMPARISON: 03/15/2020 FINDINGS: General: A single living intrauterine gestation is present. Presentation: Transverse, head to the maternal left Placenta: Placental position is posterior, 2.5 cm the internal cervical os on transabdominal imaging , . Amniotic fluid index: 17.6 cm, 73rd percentile for gestational age. heart rate: 152 beats per minute. Maternal cervical canal: 4.9 cm long; normal length is 2.5 cm or more. Other: 4 chambered heart, outflow tracts, diaphragm, fluid-filled stomach, urinary bladder, and renal fossa are normal. Bilateral lower extremities were suboptimally seen due to position. There is possible inversion of the left ankle. Right ankle/leg relationship was also not well seen. IMPRESSION: 1. By transabdominal imaging, the posterior placenta is 2.5 cm from the internal cervical os. Transva ginal imaging was not requested. 2. The bilateral lower extremity ankle alignment is suboptimally seen and there is a concern for inve rsion of the left ankle. Follow-up is recommended. Reviewed by: Serenity Valenzuela MD on 05/14/2020 6:04 PM PDT Approved by: Serenity Valenzuela MD on 05/14/2020 6:04 PM PDT Station ID: [id number]
== END 2020-05-13 16:47 | disposition home or self-care (01) ==
LOC: DI 16:46
PROVIDERS: ATTEND Obstetrics & Gynecology
DX: Z34.80 Encounter for supervision of other normal pregnancy, unspecified trimester (principal)
CPT/HCPCS: 76816

== ENCOUNTER 2020-06-03 18:56 | Outpatient (CLI) | payer MEDICAID ==
--- NOTE | 2020-06-04 15:15 | Ultrasound Report ---
PROCEDURE: OB F/U or Repeat INDICATIONS: ANKLE, LEG, FOOT, ANGLE NOT WELL SEEN ON PRIOR OUTSIDE/PRIOR DATING DATA: Last menstrual period (LMP): 12/12/2019. LMP-based estimated date of delivery (SAMPSON): 04/16 11/06. First dating scan (date and location): 12/28/2019. Estimated date of delivery (SAMPSON) from first dating scan: 08/17/2020. TECHNIQUE: Real-time scanning was performed of the fetus, with image documentation and biometric measurements. COMPARISON: OB ultrasound 05/13/2020 FINDINGS: General: A single living intrauterine gestation is present. Presentation: Transverse Placenta: Placental position is posterior, without previa. Amniotic fluid index: 15.9 cm, 60th percentile for gestational age. Largest pocket 5.6 cm heart rate: 150 beats per minute. Maternal cervical canal: 5.8 cm long; normal length is 2.5 cm or more. biometrics: Estimated gestational age from initial scan: 29 weeks 2 days Other: Additional images of the lower extremities were obtained. Positioning of the ankle remains tr ansverse with suboptimal evaluation. IMPRESSION: 1. Single live intrauterine with ultrasound gestational age of 29 weeks 2 days. 2. Ankle positioning remain suboptimal. Left foot is better visualized and appears grossly within nor mal limits. However, right foot remains not well seen. Reviewed by: Reshma Vitale MD on 06/04/2020 3:14 PM PDT Approved by: Reshma Vitale MD on 06/04/2020 3:14 PM PDT Station ID: [id number]
== END 2020-06-03 18:57 | disposition home or self-care (01) ==
LOC: DI 18:56
PROVIDERS: ATTEND Obstetrics & Gynecology
DX: Z34.80 Encounter for supervision of other normal pregnancy, unspecified trimester (principal); Z36.89 Encounter for other specified antenatal screening
CPT/HCPCS: 76816

== ENCOUNTER 2020-06-13 09:54 | Outpatient (CLI) | payer MEDICAID ==
[2020-06-13 11:28] LABS: HGB - HEMOGLOBIN 11.3 g/dL (12.0-16.0); MEAN CORPUSCULAR HEMOGLOBIN 31.7 pg (27.0-31.0); MEAN CORPUSCULAR HGB CONC 33.4 g/dL (32.0-36.0); MEAN CORPUSCULAR VOLUME 94.9 fL (81.0-99.0); MEAN PLATELET VOLUME 9.4 fL (7.9-10.8); RED BLOOD COUNT 3.56 10^6/uL (4.20-5.40); RED CELL DISTRIBUTION WIDTH 13.4 % (12.0-15.0)
== END 2020-06-13 09:55 | disposition home or self-care (01) ==
LOC: LAB 09:54
PROVIDERS: ATTEND Obstetrics & Gynecology
DX: Z36.89 Encounter for other specified antenatal screening (principal)
CPT/HCPCS: 36415; 82950; 85027; 86850

== ENCOUNTER 2020-07-25 07:00 | Outpatient (CLI) | payer MEDICAID | END 2020-07-25 23:59 | disposition home or self-care (01) | LOC: LAB.R 07:00 | PROVIDERS: ATTEND Obstetrics & Gynecology | DX: Z36.85 Encounter for antenatal screening for Streptococcus B (principal) | CPT/HCPCS: 87797 ==

== ENCOUNTER 2020-08-01 12:51 | Outpatient (CLI) | payer MEDICAID ==
[2020-08-01 13:27] LABS: ALBUMIN 3.2 g/dL (3.2-5.5); ALBUMIN/GLOBULIN RATIO 0.9 (1.0-2.2); BILIRUBIN,TOTAL 0.5 mg/dL (0.2-1.0); CALCIUM 9.5 mg/dL (8.5-10.3); CREATININE 0.7 mg/dL (0.4-1.0); TOTAL PROTEIN 6.9 g/dL (6.7-8.2)
== END 2020-08-01 12:52 | disposition home or self-care (01) ==
LOC: LAB 12:51
PROVIDERS: ATTEND Obstetrics & Gynecology
DX: Z34.80 Encounter for supervision of other normal pregnancy, unspecified trimester (principal); R10.11 Right upper quadrant pain
CPT/HCPCS: 36415; 80053

== ENCOUNTER 2020-08-09 07:39 | Inpatient (IN) | payer MEDICAID ==
[2020-08-09] MEDS ORDERED: SODIUM CHLORIDE FLUSH 0.9% 10 ML SYRINGE IVP PRN ×2 (08:10→10:37)
[2020-08-09] MEDS ORDERED: LIDOCAINE-MPF 1% 30 ML VIAL ID PRN (08:10)
[2020-08-09] MEDS ORDERED: OXYTOCIN 10 UNIT/ML VIAL IM PRN (08:10)
[2020-08-09] MEDS ORDERED: CARBOPROST TROMETHAMINE 250 MCG/ML AMP IM PRN (08:10)
[2020-08-09] MEDS ORDERED: miSOPROStoL 200 MCG TABLET BC PRN (08:10)
[2020-08-09] MEDS ORDERED: METHYLERGONOVINE 0.2 MG/ML VIAL IM PRN (08:10)
[2020-08-09] MEDS ORDERED: OXYTOCIN/SODIUM CHLORIDE 500 ML IV PRN (08:10)
[2020-08-09] MEDS ORDERED: TRANEXAMIC ACID 1,000 MG in SODIUM CHLORIDE 0.9% 100ML 100 ML IV PRN (08:10)
--- NOTE | 2020-08-09 08:24 | ANESTHESIA ---
Pre-Anesthesia VS, & Labs - Diagnosis ruptured membranes, previous section - Procedure section Height: 5 ft 7 in - NPO >8 hours - Is Patient ?: Yes - Lab Results Lab results reviewed: Yes Home Medications and Allergies Active Medications Carboprost Tromethamine (Hemabate) 250 mcg IM Q15M PRN PRN Reason: Step 4: Hemorrhage protocol Stop: 08/14/20 08:11 Lactated Ringer's (Lr) 1,000 mls @ 150 mls/hr IV .Q6H40M STEPHANI Oxytocin/Sodium Chloride (Pitocin/Sodium Chloride) 500 mls @ 999 mls/hr IV PRN PRN; Protocol PRN Reason: POST- HEMORR PREVENTION Stop: 08/14/20 08:11 Tranexamic Acid 1,000 mg/ (Sodium Chloride) 110 mls @ 660 mls/hr IV .ONCE PRN PRN Reason: EBL >1200mL and within 3hr Stop: 08/14/20 08:11 Cefazolin Sodium 3 gm/ Sodium (Chloride) 100 mls @ 200 mls/hr IV ONCE ONE Stop: 08/09/20 08:39 Lidocaine HCl (Xylocaine-Mpf 1% Vial) 30 ml ID .ONCE PRN PRN Reason: PERINEAL REPAIR Stop: 08/14/20 08:11 Methylergonovine Maleate (Methergine Inj) 0.2 mg IM .ONCE PRN PRN Reason: Step 2: Hemorrhage protocol Stop: 08/14/20 08:11 Misoprostol (Cytotec) 800 mcg BC .ONCE PRN PRN Reason: Step 3: Hemorrhage protocol Stop: 08/14/20 08:11 Oxytocin (Pitocin) 10 unit IM .ONCE PRN PRN Reason: Step one: If no IV access Stop: 08/14/20 08:11 Sodium Chloride (Normal Saline Flush 0.9%) 10 ml IVP PRN PRN PRN Reason: NEEDED PER PROVIDER ORDERS Sodium Chloride (Normal Saline Flush 0.9%) 10 ml IVP 0100,0900,1700 [facility] Allergies/Adverse Reactions: Allergies Allergy/AdvReac Type Severity Reaction Status Date / Time No Known Drug Allergies Allergy Verified 09/09/18 03:06 Anes History & Medical History - Anesthetic History Anesthesia Complications: reports: No previous complications Family history of Anesthesia Complications: Denies Family history of Malignant Hyperthermia: Denies - Medical History Cardiovascular: reports: None Pulmonary: reports: None Gastrointestinal: reports: None Urinary: reports: None Neuro: reports: None Musculoskeletal: reports: None Endocrine/Autoimmune: reports: None Blood Disorders: reports: None Skin: reports: None Smoking Status: Never smoker Psychosocial: reports: No issues indicated Exam General: Alert, Oriented x3, Cooperative, No acute distress Dental: WNL Mouth Openin Fingerbreadth Neck Mobility: Normal Mallampati classification: I Respiratory: Lungs clear, Normal breath sounds, No respiratory distress, No accessory muscle use Cardiovascular: Regular rate, Normal S1, Normal S2, No murmurs Plan Anesthesia Type: Spinal Consent for Procedure(s) Verified and Reviewed: Yes Code Status: Attempt Resuscitation ASA classification: 2-Mild systemic disease Is this case an emergency?: No (urgent not emergent )
[2020-08-09 08:38] LABS: BASOPHILS % (AUTO) 0.2 %; EOSINOPHILS % (AUTO) 0.3 %; HGB - HEMOGLOBIN 13.2 g/dL (12.0-16.0); LYMPHOCYTES % (AUTO) 14.9 %; MEAN CORPUSCULAR HEMOGLOBIN 31.5 pg (27.0-31.0); MEAN CORPUSCULAR HGB CONC 33.5 g/dL (32.0-36.0); MEAN PLATELET VOLUME 10.2 fL (7.9-10.8); MONOCYTES # (AUTO) 0.8 10^3/uL (0.0-1.0); NEUTROPHILS # (AUTO) 10.4 10^3/uL (1.5-6.6); NEUTROPHILS % (AUTO) 77.8 %; PLT - PLATELET COUNT 245 10^3/uL (130-450); RED BLOOD COUNT 4.19 10^6/uL (4.20-5.40); RED CELL DISTRIBUTION WIDTH 15.9 % (12.0-15.0); WHITE BLOOD COUNT 13.4 x10^3/uL (4.8-10.8)
[2020-08-09] MEDS ORDERED: fentaNYL 100 MCG/2 ML VIAL IVP ONE (08:38)
[2020-08-09] MEDS ORDERED: ACETAMINOPHEN 1,000 MG/100 ML 100 ML IV ONE (08:38)
[2020-08-09] MEDS ORDERED: MORPHINE PF 5 MG/10 ML VIAL EP ONE (08:38)
[2020-08-09] MEDS ORDERED: OXYTOCIN 10 UNIT/ML VIAL IV ONE (08:38)
[2020-08-09] MEDS ORDERED: ceFAZolin 3 GM in SODIUM CHLORIDE 0.9% 100ML 100 ML IV ONE (09:00)
[2020-08-09] MEDS ORDERED: LACTATED RINGERS 1,000 ML IV SCH (09:00)
[2020-08-09] MEDS ORDERED: SODIUM CHLORIDE FLUSH 0.9% 10 ML SYRINGE IVP SCH (09:00)
--- NOTE | 2020-08-09 10:13 | PREOP HISTORY & PHYSICAL ---
DATE OF SERVICE: 08/09/2020 Physician: Rashad Mckeon MD IDENTIFICATION: The patient is a 35-year-old G2, P1 female. Her EDC is 08/17/2020, this makes her 3 8 weeks and 6 days. CHIEF COMPLAINT: Spontaneous rupture of membranes. HISTORY OF PRESENT ILLNESS: The patient states at 5:30 this morning, she noticed a gush of fluid fro m the vagina. She was noted initially to have some blood-tinge, but this cleared over time. She sta daniella she is having minimal contractions at this time. She has had a previous section perform ed for arrest of dilatation and had a 9 pound infant. She is scheduled for a on Wednesday wit h Dr. Waldrop. She does not desire tubal ligation at this time. PAST MEDICAL HISTORY: The patient denies any hypertensive, diabetic, cardiac or pulmonary disease. PAST SURGICAL HISTORY: Positive for previous section. ALLERGIES: NONE. CURRENT MEDICATIONS: vitamins as well as iron. HABITS: The patient denies use of alcohol, tobacco, street or addictive drugs. SOCIAL HISTORY: The patient has a significant other at this time.. PHYSICAL EXAMINATION GENERAL: Well-developed, well-nourished female, in no acute distress. She is currently not having a ny strong contractions. HEENT: Pupils equal and round. Extraocular muscles are intact. CARDIOVASCULAR: Regular rate and rhythm without murmurs. LUNGS: Lung church are clear without rales or wheezes. BACK: No spinal or CVA tenderness noted. ABDOMEN: Gravid. At this time, she has a reactive strip. PELVIC: Shows fluid in the vagina, which is clear, and is Nitrazine positive. The cervix was very p osterior and high at this time. MUSCULOSKELETAL: There is no CVA tenderness. DTRs are +1. IMPRESSION 1. A 35-year-old G2, P1 at 38 weeks and 6 days. 2. Previous section. 3. Spontaneous rupture of membranes. PLAN: Will perform repeat low-transverse section. Risks and benefits have been explained t o the patient, including those, but not limited to bleeding, infection, injury to pelvic organs, whic h include the uterus, tubes, ovaries, bowel, bladder and ureters. She is aware of the potential for DVT with PE as well as postoperative adhesions, which could cause pain, bowel obstruction and inferti lity. TD: 08/09/2020 08:27
--- NOTE | 2020-08-09 10:33 | OPERATIVE REPORT ---
Operative Report - General Admit Date: 08/09/20 Procedure Date: 08/09/20 Planned Procedure: repeat Low Transverse C/Section Pre-Op Diagnosis: 38.6 weeks, prior C/S, SROM Procedure Performed: Same Post Op Diagnosis: Same - Procedure Note Primary Surgeon: Rashad Mckeon MD Secondary Surgeon: Kenia ROCK Anesthesia Provider: Saman Mary CRNA Anesthesia Technique: Spinal Pathology: none IV Fluids (mL): 900 Estimated Blood Loss (mL): 700 Urine Output (mL): 50 Findings: Live macrosomic male 06/26
[2020-08-09] MEDS ORDERED: ONDANSETRON 4 MG/2 ML VIAL IVP PRN (10:37)
[2020-08-09] MEDS ORDERED: diphenhydrAMINE 25 MG CAPSULE PO PRN (10:37)
--- NOTE | 2020-08-09 13:06 | OPERATIVE REPORT ---
DATE OF SERVICE: 08/09/2020 Physician: Rashad Mckeon MD PREOPERATIVE DIAGNOSES 1. A 35-year-old 2, para 1. 2. Previous section. 3. Spontaneous rupture of membranes. 4. 38 weeks 6 days. POSTOPERATIVE DIAGNOSES 1. A 35-year-old 2, para 1. 2. Previous section. 3. Spontaneous rupture of membranes. 4. 38 weeks 6 days. PROCEDURE PERFORMED: Repeat low transverse section. SURGEON: Rashad Mckeon MD ELECTRICAL ENGINEER: Kenia Caceres CNM. ANESTHESIA: Saman Mary CRNA. ANESTHETIC: Spinal. ESTIMATED BLOOD LOSS: 700 mL IV FLUIDS: 900 mL URINE OUTPUT: 50 mL FINDINGS: Live macrosomic infant, vertex presentation with a bandolier cord. Clear amniotic fluid. Infant was in the right occiput transverse position. Normal tubes and ovaries. PROCEDURE: Following adequate spinal anesthesia, the patient was placed in supine position with a ro ll under right hip. At this point, a Hutchinson catheter was placed under sterile conditions and then she was prepped and draped in the usual fashion. Timeout was performed, in which concerns were addresse d. The old incision was excised utilizing a #10 blade. Electrocautery was used to traverse through the fat to the fascia. The fascia was incised and then carried laterally using Sierra scissors. Then, using both blunt and sharp dissection, it was freed from the rectus abdominis pyramidalis. The rect us was fairly well fused together. She had previously had a and had reapproximation of the rectus. This was divided at the linea alba. The peritoneum was entered high. Care was taken to av oid any injury to bowel or bladder. Then, with careful dissection, the rectus was split along the li roxy. Care was taken to try and avoid injury to the bladder. No defects were ascertained at this stephanie e. At this point, a bladder retractor was placed and a bladder flap was developed using both blunt a nd sharp dissection. A low transverse uterine incision was accomplished using a #10 blade and bandage scissors with finger spread technique. The amniotic fluid was noted to be clear. The head of the infant was lifted out of the pelvis and delivered. The oropharynx was bulb suctioned. The cord was allowed to pulsate for 30 seconds, then was clamped and divided. The was handed to the expansion joint finisher who was standin norman by. At this point, a segment of cord was clamped and set aside and then cord blood samples were ta gaudencio. The placenta was then manually delivered. Uterus was exteriorized, wrapped in a moist lap and cleans ed the internal portion with a dry lap. At this point, there was no evidence of any active bleeding, so the incision was closed utilizing a running locking suture of 0 Vicryl with an imbricating layer of 0 Vicryl. There was good evidence of hemostasis at the incision. This was then packed with a oliver st lap and the cul-de-sac was suctioned. Estimated blood loss was accomplished at this time. Follow ing this, the cul-de-sac was irrigated. The uterus was delivered back in abdominal cavity. The gutt ers were also irrigated. The incision was inspected. No bleeding was noted, so the peritoneum was c losed utilizing 2-0 Vicryl in a running suture. Two [id number] sutures were used to reapproxima te the rectus. The rectus was not noted to have any bleeding, so the fascia was closed utilizing loo ped PDS in a running suture. The subcutaneous tissue was then reapproximated utilizing 2-0 Vicryl. The patient has a tattoo on the superior portion of the right side of the incision. Confirmation was verbally obtained from the patient to have this removed and she requested that this be done. She crowell d this discussion then made with both myself as well as Dr. Waldrop in the clinic previously. This was excised and the edges were electrocauterized and the incision itself was closed using 4-0 Monocry l in a subcuticular stitch. At this point, three areas were reinforced with Steri-Strips and then a wound VAC was placed. Good seal was obtained. At this point, the uterus was expressed. No further bleeding was noted. The patient tolerated the procedure well and was taken to recovery in stable condition. Sponge and n eedle counts were correct. Kenia Caceres's assistance through this procedure was very important in sherice t it gave us adequate exposure as well as assistance with fundal pressure. TD: 08/09/2020 10:53
[2020-08-09] MEDS: SIMETHICONE CHEW 80 MG TABLET PO SCH (14:12)
[2020-08-09] MEDS: oxyCODONE 5 MG TABLET PO PRN ×2 (14:12→21:24)
[2020-08-09] MEDS: ACETAMINOPHEN 500 MG TABLET PO SCH (17:34)
[2020-08-09] MEDS: KETOROLAC 30 MG/ML VIAL IVP SCH ×2 (17:34→23:28)
[2020-08-09] MEDS: DOCUSATE SODIUM 100 MG CAPSULE PO SCH (21:24)
[2020-08-10] MEDS: IBUPROFEN 600 MG TABLET PO SCH ×3 (05:00→21:27)
[2020-08-10] MEDS: ACETAMINOPHEN 500 MG TABLET PO SCH ×3 (05:00→23:54)
[2020-08-10] MEDS: oxyCODONE 5 MG TABLET PO PRN ×4 (05:01→20:12)
[2020-08-10 06:29] LABS: BASOPHILS % (AUTO) 0.3 %; EOSINOPHILS # (AUTO) 0.1 10^3/uL (0.0-0.7); EOSINOPHILS % (AUTO) 0.9 %; HGB - HEMOGLOBIN 10.8 g/dL (12.0-16.0); LYMPHOCYTES % (AUTO) 15.9 %; MEAN CORPUSCULAR HEMOGLOBIN 31.9 pg (27.0-31.0); MEAN CORPUSCULAR VOLUME 96.5 fL (81.0-99.0); MEAN PLATELET VOLUME 10.1 fL (7.9-10.8); MONOCYTES # (AUTO) 0.9 10^3/uL (0.0-1.0); MONOCYTES % (AUTO) 7.4 %; NEUTROPHILS # (AUTO) 9.4 10^3/uL (1.5-6.6); NEUTROPHILS % (AUTO) 74.8 %; PLT - PLATELET COUNT 192 10^3/uL (130-450); RED BLOOD COUNT 3.39 10^6/uL (4.20-5.40); RED CELL DISTRIBUTION WIDTH 16.1 % (12.0-15.0); WHITE BLOOD COUNT 12.5 x10^3/uL (4.8-10.8)
[2020-08-10] MEDS: DOCUSATE SODIUM 100 MG CAPSULE PO SCH ×2 (08:46→20:12)
[2020-08-10] MEDS: LACTATED RINGERS 1,000 ML IV SCH ×3 (08:46→08:49)
[2020-08-10] MEDS: SODIUM CHLORIDE FLUSH 0.9% 10 ML SYRINGE IVP SCH ×3 (08:46→16:31)
[2020-08-10] MEDS: SIMETHICONE CHEW 80 MG TABLET PO SCH ×2 (08:47→17:16)
[2020-08-10] MEDS: KETOROLAC 30 MG/ML VIAL IVP SCH (08:48)
--- NOTE | 2020-08-10 11:42 | PROVIDER PROGRESS NOTE ---
Subjective - General Admit Date: 08/09/20 Procedure Date: 08/09/20 Post Op Days: 1 Procedure Performed: RLTC/S - Review of Systems Wound/Incisions: positive: Dressing dry and intact (wound vac functioning well) General: positive: No symptoms (Pain 2/10. not needing narcotics. Passing flatus, voiding, regular diet) Pulmonary: positive: No symptoms, Shortness of breath Cardiovascular: positive: No symptoms, Chest pain Gastrointestinal: positive: Flatus. negative: Nausea, Vomiting Objective - Patient Data Reviewed Vital Signs: Yes Vital Signs: Vital Signs x48h Temp Pulse Resp BP Pulse Ox 08/10/20 08:21 36.7 C 84 19 119/74 98 Weight: Weight 08/08/20 08/09/20 08/10/20 23:59 23:59 23:59 Weight (kg) 87.09 kg Intake & Output: Intake and Output Totals x24h 08/08/20 08/09/20 08/10/20 23:59 23:59 23:59 Intake Total 1860 500 Output Total 415 400 Balance 1445 100 - Lab Results Lab Results: 08/10/20 06:20 Other Lab Results: Lab Results x24hrs 08/10/20 Range/Units 06:20 WBC 12.5 H (4.8-10.8) x10^3/uL RBC 3.39 L (4.20-5.40) 10^6/uL Hgb 10.8 L (12.0-16.0) g/dL Hct 32.7 L (37.0-47.0) % MCV 96.5 (81.0-99.0) fL MCH 31.9 H (27.0-31.0) pg MCHC 33.0 (32.0-36.0) g/dL RDW 16.1 H (12.0-15.0) % Plt Count 192 (130-450) 10^3/uL MPV 10.1 (7.9-10.8) fL Neut # (Auto) 9.4 H (1.5-6.6) 10^3/uL Lymph # (Auto) 2.0 (1.5-3.5) 10^3/uL [place] # (Auto) 0.9 (0.0-1.0) 10^3/uL Eos # (Auto) 0.1 (0.0-0.7) 10^3/uL Baso # (Auto) 0.0 (0.0-0.1) 10^3/uL Absolute Nucleated RBC 0.00 x10^3/uL Nucleated RBC % 0.0 /100WBC - Current Medications Current Medications: Current Medications Generic Name Dose Route Start Last Admin Trade Name Freq PRN Reason Stop Dose Admin Acetaminophen 1,000 mg 08/09/20 11:00 08/10/20 05:00 Tylenol PO 1,000 mg Q8H STEPHANI Administration Docusate Sodium 100 mg 08/09/20 21:00 08/10/20 08:46 Colace 100mg Capsule PO 100 mg BID STEPHANI Administration Oxytocin/Sodium Chloride 500 mls @ 999 mls/hr 08/09/20 08:10 08/10/20 07:45 Pitocin/Sodium Chloride IV 08/14/20 08:11 Infused PRN PRN Titration POST- HEMORR PREVENTION Protocol 999 MILLIUNIT/MIN Lactated Ringer's 1,000 mls @ 100 mls/hr 08/09/20 11:00 08/10/20 08:49 Lr IV Not Given .Q10H STEPHANI Ibuprofen 600 mg 08/10/20 06:00 08/10/20 05:00 Motrin PO 600 mg Q6H STEPHANI Administration Oxycodone HCl 5 mg 08/09/20 10:37 08/10/20 05:01 Roxicodone PO 5 mg Q4HR PRN Administration PAIN Simethicone 80 mg 08/09/20 14:00 08/10/20 08:47 Mylicon PO 80 mg TID STEPHANI Administration Sodium Chloride 10 ml 08/09/20 17:00 08/10/20 08:48 Normal Saline Flush 0.9% IVP Not Given 0100,0900,1700 STEPHANI - Physical Exam Wound/Incisions: positive: Dressing dry and intact General Appearance: positive: No acute distress, Alert Respiratory: positive: Chest non-tender, No respiratory distress, Breath sounds nml Cardiovascular: positive: Regular rate & rhythm, No murmur, Irregularly irregu lar Abdomen: positive: Non-tender, No organomegaly, Nml bowel sounds, Mass (not palpable) Back: negative: CVA tenderness (R), CVA tenderness (L) Extremities: negative: Calf tenderness, Mya's sign/cords Neurologic/Psychiatric: positive: Oriented x3 Impression/Plan - Problem List Problem List: S/P RLTC/S excellent progress.
[2020-08-11] MEDS: IBUPROFEN 600 MG TABLET PO SCH ×2 (03:37→10:04)
[2020-08-11] MEDS: oxyCODONE 5 MG TABLET PO PRN ×2 (04:43→08:48)
[2020-08-11] MEDS: SIMETHICONE CHEW 80 MG TABLET PO SCH ×2 (04:43→08:49)
[2020-08-11] MEDS: DOCUSATE SODIUM 100 MG CAPSULE PO SCH (08:48)
[2020-08-11] MEDS: ACETAMINOPHEN 500 MG TABLET PO SCH (08:49)
--- NOTE | 2020-08-11 11:04 | PROVIDER PROGRESS NOTE ---
Subjective - General Admit Date: 08/09/20 Procedure Date: 08/09/20 Post Op Days: 2 Procedure Performed: RLTC/S - Review of Systems Wound/Incisions: positive: Dressing dry and intact (wound vac working well) General: positive: No symptoms (Pain 3-4/10. Passing flatus, voiding, regular diet) Pulmonary: positive: No symptoms, Shortness of breath Cardiovascular: positive: No symptoms, Chest pain Gastrointestinal: positive: Flatus. negative: Nausea, Vomiting Psychiatric: positive: No symptoms Objective - Patient Data Reviewed Vital Signs: Yes Vital Signs: Vital Signs x48h Temp Pulse Resp BP Pulse Ox 08/11/20 08:53 37.2 C 69 16 112/57 L 100 08/11/20 03:41 37.1 C 68 14 104/56 L 98 Weight: Weight 08/09/20 08/10/20 08/11/20 23:59 23:59 23:59 Weight (kg) 87.09 kg Intake & Output: Intake and Output Totals x24h 08/09/20 08/10/20 08/11/20 23:59 23:59 23:59 Intake Total 1860 500 Output Total 415 400 Balance 1445 100 - Lab Results Lab Results: 08/10/20 06:20 - Current Medications Current Medications: Current Medications Generic Name Dose Route Start Last Admin Trade Name Freq PRN Reason Stop Dose Admin Acetaminophen 1,000 mg 08/09/20 11:00 08/11/20 08:49 Tylenol PO 1,000 mg Q8H STEPHANI Administration Docusate Sodium 100 mg 08/09/20 21:00 08/11/20 08:48 Colace 100mg Capsule PO 100 mg BID STEPHANI Administration Oxytocin/Sodium Chloride 500 mls @ 999 mls/hr 08/09/20 08:10 08/10/20 07:45 Pitocin/Sodium Chloride IV 08/14/20 08:11 Infused PRN PRN Titration POST- HEMORR PREVENTION Protocol 999 MILLIUNIT/MIN Lactated Ringer's 1,000 mls @ 100 mls/hr 08/09/20 11:00 08/10/20 08:49 Lr IV Not Given .Q10H STEPHANI Ibuprofen 600 mg 08/10/20 06:00 08/11/20 10:04 Motrin PO 600 mg Q6H STEPHANI Administration Oxycodone HCl 5 mg 08/09/20 10:37 08/11/20 08:48 Roxicodone PO 5 mg Q4HR PRN Administration PAIN Simethicone 80 mg 08/09/20 14:00 08/11/20 08:49 Mylicon PO 80 mg TID STEPHANI Administration Sodium Chloride 10 ml 08/09/20 17:00 08/10/20 16:31 Normal Saline Flush 0.9% IVP Not Given 0100,0900,1700 STEPHANI - Physical Exam Wound/Incisions: positive: Dressing dry and intact (wound vac working well) Respiratory: positive: Chest non-tender, No respiratory distress, Breath sounds nml Cardiovascular: positive: Regular rate & rhythm, No murmur, No gallop Abdomen: positive: Non-tender, Nml bowel sounds Back: negative: CVA tenderness (R), CVA tenderness (L) Skin: positive: Color nml Extremities: negative: Calf tenderness, Mya's sign/cords Neurologic/Psychiatric: positive: Oriented x3 Impression/Plan - Problem List Problem List: POD # 2 excellent progress Send home reviewed breast feeding, mastitis, contraception. RTC 1 week Discharge medication: Oxycodone 5mg #15 motrin home supply Colace home supply PNV home supply
--- NOTE | 2020-08-11 12:00 | Labor Flowsheet ---
Labor Flowsheet Datetime Report Generated by CPN: 08/11/2020 12:00 Datetime: 08/09/2020 15:36 VAGINAL EXAM Membranes Ruptured Date/Time: 08/09/2020 05:30 Membranes Rupture Method: Spontaneous Amniotic Fluid Color: Clear Amniotic Fluid Amount: Moderate Amniotic Fluid Odor: None Datetime: 08/09/2020 15:24 VITAL SIGNS NBP Sys/Ela/Mean (mmHg): 133 : 83 : 95 Pulse: 83
--- NOTE | 2020-08-11 12:07 | Discharge Plan ---
Discharge Plan Problem Reviewed?: Yes Disposition: Home, Self Care Condition: Good Diet: Regular Activity Restrictions: pelvic rest Shower Restrictions: No Driving Restrictions: No Weight Bearing: Full Weight No Smoking: If you smoke, Please STOP! Call for help. Follow-up with: Alison Giles PA-C [Primary Care Provider] -
--- NOTE | 2020-08-11 16:46 | DISCHARGE SUMMARY ---
Physician: Rashad Mckeon MD DATE OF ADMISSION: 08/09/2020 DATE OF DISCHARGE: 08/11/2020 ADMITTING DIAGNOSES 1. A 35-year-old G2, P1 at 38 and 6/7ths. 2. Spontaneous rupture of membranes. 3. Previous section for macrosomia. DISCHARGE DIAGNOSES 1. A 35-year-old G2, P1 at 38 and 6/7ths. 2. Spontaneous rupture of membranes. 3. Previous section for macrosomia. PROCEDURES: Repeat low transverse section. PRESENTING HISTORY: Patient is a 35-year-old G2, P1 female who is 38 and 6/7ths. She was scheduled for a on 08/12/2020. However, on the morning of 08/09/2020 at 5:30 in the morning, she spontaneously ruptured her membranes. Her course had been unremarkable. She is doing well. LABORATORIES: CBC on admission showed a hemoglobin of 13.2. White count was 13.4. Platelets were 245. Postop, her white count was 12.5. Hemoglobin was 10.8 and hematocrit was 32.7. Platelets were 192. HOSPITAL COURSE: Patient presented with ruptured membranes, had a scheduled for the following Wednesday. For this reason, she was taken back for repeat section. This was performed without incident. At the time of delivery, she was noted to have a live which weighed 9 pounds and 9 ounces. Infant was male at Apgars 9 and 9. Her postoperative course was unremarkable. Her diet was advanced. She started passing flatus. She is currently doing well at this time. We are sending her home today with instructions to follow up in the clinic in 1 week. DISCHARGE MEDICATIONS 1. Oxycodone 5 mg, #15. 2. Ibuprofen 800 mg. Home supply. 3. Colace 100 mg p.o. b.i.d. Home supply. We have discussed the issues of contraception, as well as . TD: 08/11/2020 11:19 [facility]
--- NOTE | 2020-08-12 15:29 | ANESTHESIA ---
Pre-Anesthesia VS, & Labs - Diagnosis ruptured membranes, previous c section - Procedure section Vital Signs: Temp Pulse Resp BP Pulse Ox 37 C 58 L 19 105/62 100 08/09/20 11:05 08/09/20 11:05 08/09/20 11:05 08/09/20 11:05 08/09/20 11:05 Height: 5 ft 7 in - NPO >8 hours - Is Patient ?: Yes - Lab Results Lab results reviewed: Yes Fish Bones: 08/10/20 06:20 Home Medications and Allergies Allergies/Adverse Reactions: Allergies Allergy/AdvReac Type Severity Reaction Status Date / Time No Known Drug Allergies Allergy Verified 09/09/18 03:06 Anes History & Medical History - Anesthetic History Anesthesia Complications: reports: No previous complications Family history of Anesthesia Complications: Denies Family history of Malignant Hyperthermia: Denies - Medical History Smoking Status: Never smoker Exam General: Alert, Oriented x3, Cooperative, No acute distress Dental: WNL Neck Mobility: Normal Mallampati classification: II Plan Anesthesia Type: Spinal Consent for Procedure(s) Verified and Reviewed: Yes Code Status: Attempt Resuscitation ASA classification: 2-Mild systemic disease Is this case an emergency?: No (urgent not emergent)
--- NOTE | 2020-08-12 15:30 | ANESTHESIA POST OP EVALUATION ---
Anesthesia Post Eval - Post Anesthesia Eval Vitals: Last Vital Signs Temp 37 C 08/09/20 11:05 Pulse 58 L 08/09/20 11:05 Resp 19 08/09/20 11:05 BP 105/62 08/09/20 11:05 Pulse Ox 100 08/09/20 11:05 CV Function Including HR & BP: positive: Stable Pain Control: positive: Satisfactory Nausea & Vomiting: positive: Negative Mental Status: positive: Patient Participates Respiratory Status: Airway Patent Hydration Status: Satisfactory
[2020-08-13 11:14] VITALS: BP 105/62
== END 2020-08-11 11:15 | disposition home or self-care (01) | DRG 788 ==
LOC: WFO 07:39 → FBP 07:42 → WFO 08:09 → FBP 08:10
PROVIDERS: ADMIT Obstetrics & Gynecology; ATTEND Obstetrics & Gynecology
PROC: 10D00Z1 Extraction of Products of Conception, Low, Open Approach (ICD-10-PCS; principal; 2020-08-09 11:30)
DX: O34.211 Maternal care for low transverse scar from previous cesarean delivery (principal); Z3A.38 38 weeks gestation of pregnancy; Z37.0 Single live birth
CPT/HCPCS: 85025; 86850; 86900; 86901; 87635; 99211; A9270; J0131; J2274; J7120

== ENCOUNTER 2020-08-09 11:58 | Outpatient (CLI) | payer MEDICAID | END 2020-08-09 11:59 | disposition home or self-care (01) | LOC: LAB 11:58 | PROVIDERS: ATTEND Obstetrics & Gynecology | DX: Z53.9 Procedure and treatment not carried out, unspecified reason (principal) ==

== ENCOUNTER 2020-08-31 08:57 | Outpatient (CLI) | payer MEDICAID ==
--- NOTE | 2020-08-31 10:38 | Ultrasound Report ---
PROCEDURE: Abdomen Complete INDICATIONS: RUQ ABDOMINAL PAIN TECHNIQUE: Real-time scanning was performed of the abdominal and retroperitoneal organs, with image documentatio n. COMPARISON: None. FINDINGS: Liver: Liver is normal in size and homogeneous in echotexture. Gallbladder: Demonstrates multiple small calculi. No gallbladder wall thickening. Biliary ducts: Intrahepatic bile ducts are non-dilated. Extrahepatic bile duct caliber measures 3 m m. Normal is 6-7 mm or less in diameter, or 10 mm or less post-cholecystectomy. Pancreas: Visualized portions of the pancreas are sonographically normal. Pancreas is not well seen . Spleen: Spleen is normal in size and homogeneous in echotexture. Kidneys: Kidneys are normal in size and echotexture. Right kidney measures 11.2 cm long; left kidne y measures 10.7 cm long. No hydronephrosis or nephrolithiasis. No solid masses. Aorta: Visualized aorta is normal in caliber at less than 3 cm. Iliacs: Proximal common iliac arteries are normal in caliber at less than 2.5 cm. IVC: Intrahepatic inferior vena cava is patent. Miscellaneous: No free abdominal fluid. IMPRESSION: 1. Cholelithiasis. No evidence of cholecystitis. Reviewed by: Kiana Yang MD on 08/31/2020 10:36 AM [facility] Approved by: Kiaan Yang MD on 08/31/2020 10:36 AM [facility] Station ID: [id number]
== END 2020-08-31 08:58 | disposition home or self-care (01) ==
LOC: DI 08:57
PROVIDERS: ATTEND Obstetrics & Gynecology
DX: K80.20 Calculus of gallbladder without cholecystitis without obstruction (principal)
CPT/HCPCS: 76700

== ENCOUNTER 2020-09-21 17:41 | Emergency (ER) | payer MEDICAID ==
[2020-09-21] MEDS ORDERED: HYDROmorphone 1 MG/ML CARPUJECT IVP STA (18:04)
[2020-09-21] MEDS ORDERED: ONDANSETRON 4 MG/2 ML VIAL IVP STA (18:04)
--- NOTE | 2020-09-21 18:20 | ED Physician Documentation ---
PD HPI ABD PAIN - Stated complaint Stated Complaint: SOA/UPPER ABD PX/NAUSEA - Chief complaint Chief Complaint: Abd Pain - History obtained from History obtained from: Patient - Additional information Additional information: 35-year-old woman who is about 6 weeks . During her she started to develop some intermittent right upper quadrant pain radiating to the back. A little under a month ago she had a RUQ ultrasound showing cholelithiasis. She has not been able to see a general surgeon yet because of a change in insurance. Pain recurred and is worse than it ever has been at 330 today. Is epigastric and right upper quadrant radiating through to the back. Review of Systems Ten Systems: 10 systems reviewed and negative Constitutional: reports: Reviewed and negative Throat: reports: Reviewed and negative Cardiac: reports: Reviewed and negative PD PAST MEDICAL HISTORY - Present Medications Home Medications: Ambulatory Orders Medication Instructions Recorded Confirmed Amox/Clav 875/125 [Augmentin] 1 each PO Q12H #20 tablet 09/21/20 HYDROcod/ACETAM 5/325 [[place] 5/325] 1 - 2 tab PO Q6H PRN #15 tablet 09/21/20 - Allergies Allergies/Adverse Reactions: Allergies Allergy/AdvReac Type Severity Reaction Status Date / Time No Known Drug Allergies Allergy Verified 09/21/20 17:49 - Social History Smoking Status: Never smoker PD ED PE NORMAL - Vitals Vital signs reviewed: Yes - General General: Alert and oriented X 3, Other (Is looking uncomfortable due to pain.) - HEENT HEENT: PERRL, EOMI - Neck Neck: Supple, no meningeal sign, No bony TTP - Cardiac Cardiac: RRR, No murmur - Respiratory Respiratory: No respiratory distress, Clear bilaterally - Abdomen Abdomen: Normal bowel sounds, Soft, Other (Quite tender in the right upper quadrant with positive Martinez sign) - Back Back: No CVA TTP, No spinal TTP - Derm Derm: Normal color, Warm and dry - Extremities Extremities: No edema, No calf tenderness / cord - Neuro Neuro: Alert and oriented X 3, Normal speech Results - Vitals Vitals: Vital Signs - 24 hr 09/21/20 09/21/20 09/21/20 17:49 18:47 21:50 Temperature 36.6 C 37.1 C Heart Rate 72 51 L 60 Respiratory 16 16 16 Rate Blood Pressure 115/65 110/72 119/81 H O2 Saturation 100 95 99 09/21/20 21:54 Temperature 36.7 C Heart Rate 61 Respiratory 16 Rate Blood Pressure 119/81 H O2 Saturation 98 Oxygen O2 Source Room air - Labs Labs: Laboratory Tests 09/21/20 09/21/20 09/21/20 18:05 18:05 20:35 WBC 18.0 H RBC 4.47 Hgb 13.9 Hct 41.3 MCV 92.4 MCH 31.1 H MCHC 33.7 RDW 13.1 Plt Count 319 MPV 9.7 Neut # (Auto) 12.7 H Lymph # (Auto) 4.2 H [place] # (Auto) 0.9 Eos # (Auto) 0.1 Baso # (Auto) 0.1 Absolute Nucleated RBC 0.00 Nucleated RBC % 0.0 Sodium 137 Potassium 3.3 L Chloride 103 Carbon Dioxide 24 Anion Gap 10.0 BUN 12 Creatinine 0.9 Estimated GFR (MDRD) 72 L Glucose 106 H Calcium 9.9 Total Bilirubin 0.9 AST 53 H ALT 53 Alkaline Phosphatase 93 Total Protein 7.8 Albumin 4.6 Globulin 3.2 Albumin/Globulin Ratio 1.4 Lipase 43 Urine Color YELLOW Urine Clarity CLEAR Urine pH 6.0 Ur Specific [place] 1.025 Urine Protein NEGATIVE Urine Glucose (UA) NEGATIVE Urine Ketones NEGATIVE Urine Occult Blood NEGATIVE Urine Nitrite NEGATIVE Urine Bilirubin NEGATIVE Urine Urobilinogen 0.2 (NORMAL) Ur Leukocyte Esterase NEGATIVE Ur Microscopic Review NOT INDICATED Urine Culture Comments NOT INDICATED Urine HCG, Qual NEGATIVE PD MEDICAL DECISION MAKING - ED course ED course: 35-year-old woman presents with right upper quadrant pain, history of known cholelithiasis. Has a white count of 18,000. Her pain was gone after single dose of pain medications and she was nontender on reevaluation. Work-up does show mild cholecystitis on ultrasound and the case was discussed by phone with Dr. Dex Gallagher who recommends that she can probably go home with an urgent surgical referral on some antibiotics. Agreed with Augmentin. Patient does not have a primary care physician will need primary care referral, so I spoke with Christine Pena who does have her relationship with this patient and she will put in the referral as well. Also passed along to Dr. 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 Departure - Departure Disposition: Home, Self Care Clinical Impression: Cholecystitis Condition: Good Record reviewed to determine appropriate education?: Yes Instructions: Gallstones Dc Follow-Up: Christine Pena MD [Provider Admit Priv/Credential] - Hilario Anderson MD [Provider Admit Priv/Credential] - Prescriptions: Amox/Clav 875/125 [Augmentin] 1 each PO Q12H #20 tablet HYDROcod/ACETAM 5/325 [[place] 5/325] 1 - 2 tab PO Q6H PRN #15 tablet PRN Reason: Pain Comments: Dr. Pena should be putting in the referral for the surgery consult, also the requested titers for measles, mumps, rubella, varicella, and QuantiFERON gold. Return for new or worsening symptoms or if pain is not controlled by the pain medication. Do not drink or drive while taking the pain medication. Try to minimize the amount of pain medication you are taking while breast-feeding but it is not dangerous with occasional dosing. Discharge Date/Time: 09/21/20 21:54
[2020-09-21 18:22] LABS: BASOPHILS # (AUTO) 0.1 10^3/uL (0.0-0.1); BASOPHILS % (AUTO) 0.3 %; EOSINOPHILS # (AUTO) 0.1 10^3/uL (0.0-0.7); EOSINOPHILS % (AUTO) 0.6 %; HGB - HEMOGLOBIN 13.9 g/dL (12.0-16.0); LYMPHOCYTES # (AUTO) 4.2 10^3/uL (1.5-3.5); LYMPHOCYTES % (AUTO) 23.3 %; MEAN CORPUSCULAR HEMOGLOBIN 31.1 pg (27.0-31.0); MEAN CORPUSCULAR HGB CONC 33.7 g/dL (32.0-36.0); MEAN CORPUSCULAR VOLUME 92.4 fL (81.0-99.0); MEAN PLATELET VOLUME 9.7 fL (7.9-10.8); MONOCYTES # (AUTO) 0.9 10^3/uL (0.0-1.0); NEUTROPHILS # (AUTO) 12.7 10^3/uL (1.5-6.6); NEUTROPHILS % (AUTO) 70.2 %; PLT - PLATELET COUNT 319 10^3/uL (130-450); RED BLOOD COUNT 4.47 10^6/uL (4.20-5.40); RED CELL DISTRIBUTION WIDTH 13.1 % (12.0-15.0)
[2020-09-21 18:41] LABS: ALBUMIN 4.6 g/dL (3.2-5.5); ALBUMIN/GLOBULIN RATIO 1.4 (1.0-2.2); BILIRUBIN,TOTAL 0.9 mg/dL (0.2-1.0); CALCIUM 9.9 mg/dL (8.5-10.3); CREATININE 0.9 mg/dL (0.4-1.0); TOTAL PROTEIN 7.8 g/dL (6.7-8.2)
[2020-09-21 20:47] LABS: BILIRUBIN,URINE NEGATIVE (NEGATIVE); GLUCOSE, URINE (UA) NEGATIVE (NEGATIVE); KETONES,URINE (UA) NEGATIVE (NEGATIVE); LEUKOCYTE ESTERASE, URINE NEGATIVE (NEGATIVE); NITRITE,URINE NEGATIVE (NEGATIVE); OCCULT BLOOD,URINE NEGATIVE (NEGATIVE); PROTEIN,URINE NEGATIVE (NEGATIVE); UROBILINOGEN,URINE 0.2 (NORMAL) E.U./dL (NORMAL)
[2020-09-21 20:50] LABS: CLARITY,URINE CLEAR (CLEAR); HCG UR QUAL NEGATIVE
[2020-09-21] MEDS ORDERED: AMOX/CLAV 875 MG/125 MG TABLET PO STA (21:32)
[2020-09-21] MEDS ORDERED: HYDROcod/ACET 5/325 Prepack 4 PO STA (21:36)
[2020-09-21 21:51] VITALS: BP 119/81
--- NOTE | 2020-09-22 11:31 | Ultrasound Report ---
PROCEDURE: Abdomen Limited INDICATIONS: RUQ pain, known gallstones TECHNIQUE: Real-time focused scanning was performed of the abdomen, with image documentation. COMPARISON: 08/31/2020 FINDINGS: The liver demonstrates normal size and echogenicity. No liver lesions are detected. Multiple mobile gravel-like stones can be seen within the gallbladder, which appear mobile. The gallb ladder wall is mildly thickened at 4.7 mm. A small amount of pericholecystic fluid is seen. The sonog raphic Martinez's sign is negative, yet it is considered to be unreliable, since this patient is medica kathryn. No biliary ductal dilatation is seen. The common bile duct measures 4 mm. The visualized pancreas is within normal limits. The visualized right kidney is unremarkable. The IVC is patent. IMPRESSION: Mobile gravel-like stone seen within the gallbladder. There is also, gallbladder wall thickening and pericholecystic fluid. The sonographic Martinez's sign is negative, yet is unreliable as the patient is medicated. These imaging findings are concerning for cholecystitis. Please correlate with patient presentation, clinical examination findings, and laboratory values, as appropriate. Note: No significant discrepancy from the preliminary report. Reviewed by: Yovani Chatman MD on 09/22/2020 10:30 AM [facility] [place] Approved by: Yovani Chatman MD on 09/22/2020 10:30 AM [facility] [place] Station ID: [id number]
== END 2020-09-21 21:54 | disposition home or self-care (01) ==
LOC: ED 17:41
DX: O99.63 Diseases of the digestive system complicating the puerperium (principal); K80.10 Calculus of gallbladder with chronic cholecystitis without obstruction
CPT/HCPCS: 36415; 76705; 80053; 81003; 81025; 83690; 85025; 96374; 96375; 99284; 99285; A9270; J1170; 81001; 87086

== ENCOUNTER 2020-09-23 13:42 | Outpatient (CLI) | payer MEDICAID ==
[2020-09-24 12:22] LABS: HEPATITIS B SURFACE ANTIGEN NON-REACTIVE (NON-REACTIVE)
[2020-09-30 17:42] LABS: VARICELLA ZOSTER VIRUS IGM 0.96
== END 2020-09-23 13:43 | disposition home or self-care (01) ==
LOC: LAB 13:42
PROVIDERS: ATTEND Obstetrics & Gynecology
DX: Z01.84 Encounter for antibody response examination (principal); Z11.1 Encounter for screening for respiratory tuberculosis; Z11.59 Encounter for screening for other viral diseases
CPT/HCPCS: 36415; 81599; 86735; 86787; 87340

== ENCOUNTER 2020-10-01 12:11 | Day surgery (SDC) | payer MEDICAID ==
[2020-10-01] MEDS ORDERED: LACTATED RINGERS 1,000 ML IV ONE ×3 (12:33→16:45)
[2020-10-01 12:49] LABS: HCG UR QUAL NEGATIVE
[2020-10-01] MEDS ORDERED: METOCLOPRAMIDE 10 MG/2 ML VIAL IVP PRN (12:50)
[2020-10-01] MEDS ORDERED: NALOXONE 0.4 MG/ML VIAL IVP PRN (12:50)
[2020-10-01] MEDS ORDERED: ePHEDrine 50 MG/ML VIAL IVP PRN (12:50)
[2020-10-01] MEDS ORDERED: fentaNYL 100 MCG/2 ML VIAL IVP PRN (12:50)
[2020-10-01] MEDS ORDERED: HYDROmorphone 0.5 MG/0.5 ML SYRINGE IVP PRN (12:50)
[2020-10-01] MEDS ORDERED: ATROPINE ABBOJECT 1 MG/10 ML SYRINGE IVP PRN (12:50)
[2020-10-01] MEDS ORDERED: ONDANSETRON 4 MG/2 ML VIAL IVP PRN ×2 (12:50→16:05)
[2020-10-01] MEDS ORDERED: MORPHINE 2 MG/ML CARPUJECT IVP PRN (12:50)
[2020-10-01] MEDS ORDERED: LACTATED RINGERS 1,000 ML IV SCH (13:00)
--- NOTE | 2020-10-01 13:10 | ANESTHESIA ---
Pre-Anesthesia VS, & Labs - Diagnosis chronic cholecystitis - Procedure laparoscopic cholecystectomy Vital Signs: Temp Pulse Resp BP Pulse Ox 36.6 C 64 16 133/85 H 97 10/01/20 12:20 10/01/20 12:20 10/01/20 12:20 10/01/20 12:20 10/01/20 12:20 Height: 5 ft 6 in Weight (kg): 74.7 kg Body Mass Index: 26.6 BMI Classification: Overweight - NPO >8 hours - Is Patient ?: No - Lab Results Lab results reviewed: Yes Home Medications and Allergies Home Medications: Ambulatory Orders Ferrous Sulfate 325 mg PO DAILY 09/26/20 Pnv No.121/Iron/Folic Acid [ Multivitamin Tablet] 1 each PO DAILY 09/26/20 Norethindrone [Ortho Micronor] 0.35 mg PO DAILY 10/01/20 Active Medications Atropine Sulfate (Atropine Abboject 1 Mg/10 Ml Syringe) 0.5 mg IVP Q5M PRN PRN Reason: Bradycardia Stop: 10/02/20 12:50 Ephedrine Sulfate (Ephedrine 50 Mg/Ml Vial) 10 mg IVP Q5M PRN PRN Reason: HYPOTENSION Stop: 10/02/20 12:50 Fentanyl (Fentanyl 100 Mcg/2 Ml Vial) 25 - 50 mcg IVP Q5M PRN PRN Reason: BREAKTHROUGH PAIN (2nd Choice) Stop: 10/02/20 12:50 Hydromorphone HCl (Hydromorphone 0.5 Mg/0.5 Ml Syringe) 0.2 - 0.6 mg IVP Q5M PRN PRN Reason: PAIN (First Choice) Stop: 10/02/20 12:50 Lactated Ringer's (Lr) 1,000 mls @ 100 mls/hr IV .Q10H STEPHANI Stop: 10/01/20 22:59 Metoclopramide HCl (Metoclopramide 10 Mg/2 Ml Vial) 10 mg IVP Q6HR PRN PRN Reason: N/V not relieved by Zofran Morphine Sulfate (Morphine 2 Mg/Ml Carpuject) 2 - 4 mg IVP Q5M PRN PRN Reason: PAIN (3rd Choice) Stop: 10/02/20 12:50 Naloxone HCl (Naloxone 0.4 Mg/Ml Vial) 0.1 mg IVP Q2M PRN PRN Reason: RESP RATE <8 Stop: 10/02/20 12:50 Ondansetron HCl (Ondansetron 4 Mg/2 Ml Vial) 4 mg IVP ONCE PRN PRN Reason: N/V (First Choice) Stop: 10/02/20 12:50 Ferrous Sulfate 325 mg PO DAILY 09/26/20 Pnv No.121/Iron/Folic Acid [ Multivitamin Tablet] 1 each PO DAILY 09/26/20 Norethindrone [Ortho Micronor] 0.35 mg PO DAILY 10/01/20 Allergies/Adverse Reactions: Allergies Allergy/AdvReac Type Severity Reaction Status Date / Time No Known Drug Allergies Allergy Verified 10/01/20 12:56 Anes History & Medical History - Anesthetic History Anesthesia Complications: reports: No previous complications Family history of Anesthesia Complications: Denies Family history of Malignant Hyperthermia: Denies - Medical History Cardiovascular: reports: None Pulmonary: reports: None Gastrointestinal: reports: None Urinary: reports: None Musculoskeletal: reports: None Endocrine/Autoimmune: reports: None Skin: reports: None Smoking Status: Never smoker - Surgical History Gynecologic: section Exam General: Alert, Oriented x3, Cooperative, No acute distress Dental: WNL Mouth Openin Fingerbreadth Neck Mobility: Normal Mallampati classification: I Respiratory: Lungs clear, Normal breath sounds, No respiratory distress, No accessory muscle use Cardiovascular: Regular rate, Normal S1, Normal S2, No murmurs Plan Anesthesia Type: General Consent for Procedure(s) Verified and Reviewed: Yes Code Status: Attempt Resuscitation ASA classification: 2-Mild systemic disease Is this case an emergency?: No
[2020-10-01] MEDS ORDERED: SCOPOLAMINE PATCH TOP ONE (13:16)
[2020-10-01] MEDS ORDERED: fentaNYL 100 MCG/2 ML VIAL ONE ×2 (13:24→15:38)
[2020-10-01] MEDS ORDERED: MIDAZOLAM 2 MG/2 ML VIAL ONE (13:24)
[2020-10-01] MEDS ORDERED: ROCURONIUM 50 MG/5 ML VIAL ONE (13:24)
[2020-10-01] MEDS ORDERED: PROPOFOL 200 MG/20 ML VIAL IVP ONE (13:24)
[2020-10-01] MEDS ORDERED: LIDOCAINE-MPF 2% 5 ML VIAL ONE (13:24)
[2020-10-01] MEDS ORDERED: DEXAMETHASONE 4 MG/ML VIAL ONE (13:24)
[2020-10-01] MEDS ORDERED: ONDANSETRON 4 MG/2 ML VIAL ONE (13:25)
[2020-10-01] MEDS ORDERED: KETOROLAC 30 MG/ML VIAL ONE (13:25)
[2020-10-01] MEDS ORDERED: SCOPOLAMINE PATCH TOP SCH (14:00)
[2020-10-01] MEDS ORDERED: BUPIVACAINE 0.25% PF 30 ML VIAL ONE (14:24)
[2020-10-01] MEDS ORDERED: BUPIVACAINE 0.25% PF 30 ML VIAL SUBQ ONE (14:40)
[2020-10-01] MEDS ORDERED: NEOSTIGMINE 1 MG/1 ML 10 ML MDV ONE (15:27)
[2020-10-01] MEDS ORDERED: GLYCOPYRROLATE 1 MG/5 ML VIAL ONE (15:27)
[2020-10-01] MEDS ORDERED: HYDROcod/ACETAM 5/325 MG TABLET PO PRN (16:05)
--- NOTE | 2020-10-01 16:19 | ANESTHESIA POST OP EVALUATION ---
Anesthesia Post Eval - Post Anesthesia Eval Vitals: Last Vital Signs Temp 36.2 C L 10/01/20 16:10 Pulse 50 L 10/01/20 16:10 Resp 12 10/01/20 16:10 BP 115/68 10/01/20 16:10 Pulse Ox 95 10/01/20 16:10 CV Function Including HR & BP: positive: Stable Pain Control: positive: Satisfactory Nausea & Vomiting: positive: Negative Mental Status: positive: Baseline Respiratory Status: Airway Patent Hydration Status: Satisfactory Anesthesia Complications: positive: None
[2020-10-01] MEDS ORDERED: HYDROcod/ACETAM 5/325 MG TABLET ONE (16:53)
[2020-10-01 17:04] VITALS: BP 113/82
--- NOTE | 2020-10-09 19:02 | PROCEDURE REPORT ---
DATE OF SERVICE: 10/01/2020 Physician: Giorgio Vidal MD PREOPERATIVE DIAGNOSIS: Chronic cholecystitis. POSTOPERATIVE DIAGNOSIS: Chronic cholecystitis. PROCEDURE PERFORMED: Laparoscopic cholecystectomy. SURGEON: Giorgio Vidal MD. 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 ANESTHESIA: 1. General endotracheal anesthesia. 2. Local anesthesia with Marcaine. COMPLICATIONS: None. SPECIMEN: Gallbladder. ESTIMATED BLOOD LOSS: None. DRAINS: None. FINDINGS: 1. Healthy-appearing liver. 2. Chronic cholecystitis. 3. Normal appearance of the common hepatic and common bile duct, which was evident without dissectio n. INDICATIONS FOR PROCEDURE: The patient is a healthy 35-year-old with classic chronic cholecystitis. She has not had signs or symptoms of choledocholithiasis. She presents for a laparoscopic cholecyst ectomy. Risks discussed, alternatives discussed, all questions answered, and consent obtained. DETAILS OF PROCEDURE: The patient was properly identified, brought to the operating room, and placed in the supine position. She voided prior to surgery. General endotracheal anesthesia was induced. Sequential compression devices were placed. She was prepped and draped in a sterile fashion and giv en preoperative antibiotics. Local anesthetic was given to incision areas. An infraumbilical incisi on was made. Dissection proceeded down to the fascia. The fascia was incised, lifted upwards, and a bdomen entered with the Veress needle. An 11 mm trocar with a 30-degree scope was placed under visio n. There is no evidence of injury from Veress needle or trocar placement. Under direct vision, two 5 mm trocars were placed in the right upper quadrant, and an 11 mm trocar was placed in the epigastri um. The gallbladder was retracted anterior. Loosely adherent omentum was carefully peeled down. Th e infundibulum and Ignacio's pouch were retracted right lateral and caudad. The cystic duct and cys tic artery both were clearly identified. Both were from one another using a [place] disse ctor. A large bare cystic plate area or window was carefully developed. The cystic duct and cystic artery were both clipped at the gallbladder and 2 to 3 times proximal and sharply divided. The gallb ladder was mobilized off from the bed of the liver without spillage of bile or stone material. The g allbladder was brought up through the epigastric trocar site. Hemostasis was assured. Trocars were removed under direct vision and CO2 evacuated. The fascia in the epigastrium was closed with a figur e-of-eight 0 Vicryl. The fascia at the infraumbilical site was closed with a running 0 Vicryl suture . The skin was closed with buried interrupted 4-0 Monocryl. Dressings were applied. She tolerated the procedure very well. TD: 10/09/2020 17:54
== END 2020-10-01 12:12 | disposition home or self-care (01) ==
LOC: SDS 12:11
PROVIDERS: ATTEND Surgery
PROC: 0FT44ZZ Resection of Gallbladder, Percutaneous Endoscopic Approach (ICD-10-PCS; principal; 2020-10-01 13:30)
DX: K80.10 Calculus of gallbladder with chronic cholecystitis without obstruction (principal)
CPT/HCPCS: 47562; 81025; A9270; J3490; J7120

== ENCOUNTER 2021-09-08 15:31 | Outpatient (CLI) | payer MEDICAID ==
[2021-09-08 15:52] LABS: BASOPHILS # (AUTO) 0.1 10^3/uL (0.0-0.1); BASOPHILS % (AUTO) 0.3 %; EOSINOPHILS # (AUTO) 0.1 10^3/uL (0.0-0.7); EOSINOPHILS % (AUTO) 0.3 %; HCT - HEMATOCRIT 41.9 % (37.0-47.0); HGB - HEMOGLOBIN 14.3 g/dL (12.0-16.0); LYMPHOCYTES # (AUTO) 3.3 10^3/uL (1.5-3.5); LYMPHOCYTES % (AUTO) 17.3 %; MEAN CORPUSCULAR HEMOGLOBIN 32.4 pg (27.0-31.0); MEAN CORPUSCULAR HGB CONC 34.1 g/dL (32.0-36.0); MEAN CORPUSCULAR VOLUME 94.8 fL (81.0-99.0); MEAN PLATELET VOLUME 9.6 fL (7.9-10.8); MONOCYTES % (AUTO) 5.2 %; NEUTROPHILS # (AUTO) 14.4 10^3/uL (1.5-6.6); NEUTROPHILS % (AUTO) 76.4 %; PLT - PLATELET COUNT 393 10^3/uL (130-450); RED BLOOD COUNT 4.42 10^6/uL (4.20-5.40); WHITE BLOOD COUNT 18.8 x10^3/uL (4.8-10.8)
[2021-09-08 15:58] LABS: BILIRUBIN,URINE NEGATIVE (NEGATIVE); GLUCOSE, URINE (UA) NEGATIVE (NEGATIVE); KETONES,URINE (UA) NEGATIVE (NEGATIVE); LEUKOCYTE ESTERASE, URINE NEGATIVE (NEGATIVE); NITRITE,URINE NEGATIVE (NEGATIVE); OCCULT BLOOD,URINE NEGATIVE (NEGATIVE); PH,URINE 5.5 PH (5.0-7.5); PROTEIN,URINE NEGATIVE (NEGATIVE); UROBILINOGEN,URINE 0.2 (NORMAL) E.U./dL (NORMAL)
[2021-09-08 16:10] LABS: CLARITY,URINE CLEAR (CLEAR)
[2021-09-08 16:24] LABS: BACTERIA,URINE None Seen /HPF (None Seen); RBC,URINE 0-5 /HPF (0-5); SQUAMOUS EPITHELIAL CELL,UR FEW Squamous (<= Few); WBC,URINE 0-3 /HPF (0-5)
[2021-09-09 11:01] LABS: HEPATITIS B SURFACE ANTIGEN NON-REACTIVE (NON-REACTIVE)
[2021-09-09 11:05] LABS: HEPATITIS C ANTIBODY NON-REACTIVE (NON-REACTIVE)
[2021-09-09 13:25] LABS: HIV AG/AB 4TH GEN NON-REACTIVE (NON-REACTIVE)
== END 2021-09-08 15:32 | disposition home or self-care (01) ==
LOC: LAB 15:31
PROVIDERS: ATTEND Obstetrics & Gynecology
DX: Z32.01 Encounter for pregnancy test, result positive (principal); Z36.89 Encounter for other specified antenatal screening
CPT/HCPCS: 36415; 81001; 85025; 86592; 86762; 86787; 86803; 86850; 86900; 86901; 87086; 87340; 87389

== ENCOUNTER 2021-09-09 15:40 | Outpatient (CLI) | payer MEDICAID ==
--- NOTE | 2021-09-09 17:04 | Ultrasound Report ---
PROCEDURE: OB First Trimester w/TV INDICATIONS: POSITIVE TEST OUTSIDE/PRIOR DATING DATA: Last menstrual period (LMP): 07/20/2021. LMP-based estimated date of delivery (SAMPSON): 04/26/2022. First dating scan (date and location): 09/09/2021. Estimated date of delivery (SAMPSON) from first dating scan: 04/22/2022. The below data below was generated using the ultrasound SAMPSON of 04/22/2022 TECHNIQUE: Real-time scanning was performed of the fetus and maternal pelvic organs, with image documentation. Endovaginal scanning was also performed to better visualize the fetus and maternal ovaries. COMPARISON: None FINDINGS: Embryo: Single living intrauterine gestation with estimated sonographic gestational age of approxima tely 7 weeks and 6 days based off crown-rump length measurement of approximately 1.5 cm. This correla daniella with a estimated date of delivery of approximately 04/22/2022. pole is visualized. Normal yol k sac is seen. Small perigestational hemorrhage measuring 2.1 x 1.4 x 3.1 cm. Heart rate: heart rate measured 167 bpm. Measurement variability in dating: +/- 4 weeks by LMP, +/- 7 days by mean sac diameter (use before 6 weeks gestation if crown-rump length not able to be measured), +/- 5 days by crown-rump length (6-12 weeks gestation). Maternal organs: Ovaries appear unremarkable with incidental note of a 1.6 cm right corpus luteal cy st. IMPRESSION: 1. Single living intrauterine gestation with estimated sonographic gestational age of approximately 7 weeks and 6 days based off crown-rump length measurement. Estimated date of delivery is approximatel y 04/22/2022. 2. Small perigestational hemorrhage. 3. Recommend continued clinical surveillance and follow-up routine second trimester anatomic sc reening survey. Reviewed by: Yaw Nobles MD on 09/09/2021 5:03 PM PST Approved by: Yaw Nobles MD on 09/09/2021 5:03 PM PST Station ID: [id number]
== END 2021-09-09 15:41 | disposition home or self-care (01) ==
LOC: DI 15:40
PROVIDERS: ATTEND Obstetrics & Gynecology
DX: Z32.01 Encounter for pregnancy test, result positive (principal); O46.91 Antepartum hemorrhage, unspecified, first trimester; Z3A.01 Less than 8 weeks gestation of pregnancy

== ENCOUNTER 2021-10-01 08:10 | Outpatient (CLI) | payer MEDICAID ==
[2021-10-02 23:29] LABS: CHLAMYDIA TRACHOMATIS DNA NEGATIVE (NEGATIVE); NEISSERIA GONORRHOEAE DNA NEGATIVE (NEGATIVE); TRICHOMONAS VAGINALIS DNA NEGATIVE (NEGATIVE)
== END 2021-10-01 08:11 | disposition home or self-care (01) ==
LOC: LAB.R 08:10
PROVIDERS: ATTEND Obstetrics & Gynecology
DX: Z11.3 Encounter for screening for infections with a predominantly sexual mode of transmission (principal)
CPT/HCPCS: 87491; 87591; 87661

== ENCOUNTER 2021-10-14 09:20 | Outpatient (CLI) | payer MEDICAID | END 2021-10-14 09:21 | disposition home or self-care (01) | LOC: LAB 09:20 | PROVIDERS: ATTEND Obstetrics & Gynecology | DX: Z34.90 Encounter for supervision of normal pregnancy, unspecified, unspecified trimester (principal) | CPT/HCPCS: 36415 ==

== ENCOUNTER 2021-11-21 12:34 | Emergency (ER) | payer MEDICAID ==
[2021-11-21] MEDS ORDERED: SODIUM CHLORIDE 0.9% 1,000 ML IV STA ×2 (13:01→14:19)
--- NOTE | 2021-11-21 13:04 | ED Physician Documentation ---
PD HPI NVD - Stated complaint Stated Complaint: N/V/ABD PX - Chief complaint Chief Complaint: Abd Pain - History obtained from History obtained from: Patient - History of Present Illness Timing - onset: How many days ago (2) Timing - duration: Days (2) Timing - details: Gradual onset, Still present Associated symptoms: Abdominal pain Contributing factors: Other (18wks ) Improved by: Vomiting Similar symptoms before: Diagnosis (morning sickness) Recently seen: Clinic - Additonal information Additional information: 36-year-old female with her third is 18 weeks and she has developed acute nausea and vomiting she has vomited about 5 times and she is feeling bloated and has some abdominal pain. She is uncertain whether the pain is related to the retching or something else. She has under significant stress putting her grandfather into hospice. She was asked by MIDLEVEL PROVIDER to come to the emergency department for hydration. Review of Systems Constitutional: denies: Fever Eyes: denies: Decreased vision Ears: denies: Ear pain Nose: denies: Congestion Throat: denies: Sore throat Cardiac: denies: Chest pain / pressure, Palpitations Respiratory: denies: Dyspnea, Cough GI: reports: Abdominal Pain, Nausea, Vomiting : denies: Dysuria, Frequency Skin: denies: Rash Musculoskeletal: reports: Back pain. 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 - Present Medications Home Medications: Ambulatory Orders Medication Instructions Recorded Confirmed Ferrous Sulfate 325 mg PO DAILY 09/26/20 09/26/20 Pnv No.121/Iron/Folic Acid 1 each PO DAILY 09/26/20 09/26/20 [ Multivitamin Tablet] HYDROcod/ACETAM 5/325 [[place] 5/325] 1 each PO Q6H PRN #30 tablet 10/01/20 Norethindrone [Ortho Micronor] 0.35 mg PO DAILY 10/01/20 10/01/20 Ondansetron Odt [Zofran Odt] 4 mg PO Q6H PRN #15 tablet 10/01/20 - Allergies Allergies/Adverse Reactions: Allergies Allergy/AdvReac Type Severity Reaction Status Date / Time No Known Drug Allergies Allergy Verified 11/21/21 12:42 - Social History Does the pt smoke?: No Smoking Status: Never smoker Does the pt have substance abuse?: No - Immunizations Immunizations are current?: Yes - POLST Patient has POLST: No PD ED PE NORMAL - Vitals Vital signs reviewed: Yes (normal ) - General General: Alert and oriented X 3, No acute distress, Well developed/nourished - HEENT HEENT: Atraumatic, PERRL, EOMI - Neck Neck: Supple, no meningeal sign, No bony TTP - Cardiac Cardiac: RRR, No murmur - Respiratory Respiratory: No respiratory distress, Clear bilaterally - Abdomen Abdomen: Normal bowel sounds, Soft, Non tender, Non distended, Other (gravid uterus) - Back Back: No CVA TTP, No spinal TTP - Derm Derm: Normal color, Warm and dry, No rash - Extremities Extremities: No deformity, No edema - Neuro Neuro: Alert and oriented X 3, organisational psychologist 2-12 intact, No motor deficit, No sensory deficit, Normal speech Eye Opening: Spontaneous Motor: Obeys Commands Verbal: Oriented GCS Score: 15 - Psych Psych: Normal mood, Normal affect Results - Vitals Vitals: Vital Signs - 24 hr 11/21/21 11/21/21 11/21/21 12:40 12:42 14:34 Temperature 37 C Heart Rate 76 84 74 Respiratory 18 18 100 H Rate Blood Pressure 131/60 H 101/65 118/63 O2 Saturation 99 96 Oxygen O2 Source Room air - Labs Labs: Laboratory Tests 11/21/21 11/21/21 11/21/21 13:10 13:14 13:14 WBC 18.6 H RBC 3.84 L Hgb 12.6 Hct 37.1 MCV 96.6 MCH 32.8 H MCHC 34.0 RDW 13.6 Plt Count 308 MPV 9.5 Neut # (Auto) 16.0 H Lymph # (Auto) 1.3 L [place] # (Auto) 1.1 H Eos # (Auto) 0.1 Baso # (Auto) 0.1 Absolute Nucleated RBC 0.00 Nucleated RBC % 0.0 Sodium 135 Potassium 3.4 L Chloride 103 Carbon Dioxide 23 Anion Gap 9.0 BUN 6 Creatinine 0.6 Estimated GFR (MDRD) 114 Glucose 91 Calcium 8.9 Total Bilirubin 0.3 AST 14 ALT 13 Alkaline Phosphatase 50 Total Protein 7.4 Albumin 3.7 Globulin 3.7 Albumin/Globulin Ratio 1.0 Lipase 31 Urine Color YELLOW Urine Clarity CLEAR Urine pH 6.5 Ur Specific [place] 1.010 Urine Protein NEGATIVE Urine Glucose (UA) NEGATIVE Urine Ketones NEGATIVE Urine Occult Blood NEGATIVE Urine Nitrite NEGATIVE Urine Bilirubin NEGATIVE Urine Urobilinogen 0.2 (NORMAL) Ur Leukocyte Esterase NEGATIVE Ur Microscopic Review NOT INDICATED Urine Culture Comments NOT INDICATED Procedures - Bedside sono Bedside sono by EMP: With use of bedside ultrasound the fetus is imaged it is active and viable and there is a date concordance with a biparietal diameter estimated gestational age of 18 weeks 2 days. - IVC sono (time) 1255 Bedside IVC sono: IVC measures (cm) (0.8), Dehydration (est 2 lter deficit) PD MEDICAL DECISION MAKING - ED course Complexity details: reviewed old records, reviewed results, re-evaluated patient, considered differential, d/w patient ED course: Previous well 36-year-old female 18 weeks has developed acute vomiting and here in the emerge department IV is begun and she is given intravenous saline. She was found to be dehydrated on interrogation the inferior vena cava and she does appear to have a viable 18-week fetus. Departure - Departure Disposition: 01 Home, Self Care Clinical Impression: Dehydration Leukocytosis Qualifiers: Leukocytosis type: unspecified Qualified Code(s): D72.829 - Elevated white blood cell count, unspecified Condition: Stable Instructions: ED Dehydration Follow-Up: Judie Waldrop MD [Primary Care Provider] - Forms: Activity restrictions Discharge Date/Time: 11/21/21 15:03
[2021-11-21 13:19] LABS: BASOPHILS # (AUTO) 0.1 10^3/uL (0.0-0.1); BASOPHILS % (AUTO) 0.3 %; EOSINOPHILS # (AUTO) 0.1 10^3/uL (0.0-0.7); EOSINOPHILS % (AUTO) 0.4 %; HCT - HEMATOCRIT 37.1 % (37.0-47.0); HGB - HEMOGLOBIN 12.6 g/dL (12.0-16.0); LYMPHOCYTES # (AUTO) 1.3 10^3/uL (1.5-3.5); MEAN CORPUSCULAR HEMOGLOBIN 32.8 pg (27.0-31.0); MEAN CORPUSCULAR VOLUME 96.6 fL (81.0-99.0); MEAN PLATELET VOLUME 9.5 fL (7.9-10.8); MONOCYTES # (AUTO) 1.1 10^3/uL (0.0-1.0); MONOCYTES % (AUTO) 5.7 %; NEUTROPHILS % (AUTO) 86.1 %; PLT - PLATELET COUNT 308 10^3/uL (130-450); RED BLOOD COUNT 3.84 10^6/uL (4.20-5.40); RED CELL DISTRIBUTION WIDTH 13.6 % (12.0-15.0); WHITE BLOOD COUNT 18.6 x10^3/uL (4.8-10.8)
[2021-11-21 13:26] LABS: BILIRUBIN,URINE NEGATIVE (NEGATIVE); GLUCOSE, URINE (UA) NEGATIVE (NEGATIVE); KETONES,URINE (UA) NEGATIVE (NEGATIVE); LEUKOCYTE ESTERASE, URINE NEGATIVE (NEGATIVE); NITRITE,URINE NEGATIVE (NEGATIVE); OCCULT BLOOD,URINE NEGATIVE (NEGATIVE); PH,URINE 6.5 PH (5.0-7.5); PROTEIN,URINE NEGATIVE (NEGATIVE); UROBILINOGEN,URINE 0.2 (NORMAL) E.U./dL (NORMAL)
[2021-11-21 13:28] LABS: CLARITY,URINE CLEAR (CLEAR)
[2021-11-21 13:32] LABS: ALBUMIN 3.7 g/dL (3.2-5.5); BILIRUBIN,TOTAL 0.3 mg/dL (0.2-1.0); CALCIUM 8.9 mg/dL (8.5-10.3); CREATININE 0.6 mg/dL (0.4-1.0); POTASSIUM 3.4 mmol/L (3.5-5.0); TOTAL PROTEIN 7.4 g/dL (6.7-8.2)
[2021-11-21 14:37] VITALS: BP 118/63
== END 2021-11-21 15:03 | disposition home or self-care (01) ==
LOC: ED 12:34
DX: O99.283 Endocrine, nutritional and metabolic diseases complicating pregnancy, third trimester (principal); E86.0 Dehydration; O99.119 Other diseases of the blood and blood-forming organs and certain disorders involving the immune mechanism complicating pregnancy, unspecified trimester; D72.829 Elevated white blood cell count, unspecified; Z3A.18 18 weeks gestation of pregnancy
CPT/HCPCS: 36415; 80053; 81001; 81003; 83690; 85025; 87086; 96360; 99282

== ENCOUNTER 2021-12-10 10:31 | Outpatient (CLI) | payer MEDICAID ==
--- NOTE | 2021-12-10 17:09 | Ultrasound Report ---
PROCEDURE: OB Detailed Eval INDICATIONS: SUPERVISION NORMAL OUTSIDE/PRIOR DATING DATA: Last menstrual period (LMP): 07/20/2021. LMP-based estimated date of delivery (SAMPSON): 04/26/2022. First dating scan (date and location): 09/09/2021. Estimated date of delivery (SAMPSON) from first dating scan: 04/22/2022. The below data below was generated using the ultrasound SAMPSON of 04/22/2022 TECHNIQUE: Real-time scanning was performed of the fetus, with image documentation and biometric measurements. COMPARISON: OB ultrasound 09/09/2021 FINDINGS: General: A single living intrauterine gestation is present. Presentation: Free Placenta: Placental position is anterior, without previa. Amniotic fluid index: 12.9 cm, within normal limits for gestational age. Largest pocket 4.5 cm heart rate: 160 beats per minute. Maternal cervical canal: 6.6 cm long; normal length is 2.5 cm or more. biometrics: Biparietal diameter: 5.0 cm 21 weeks 1 day Head circumference: 19.5 cm 21 weeks 5 days Abdominal circumference: 17.0 cm 22 weeks 0 days Femur length: 3.7 cm 21 weeks 5 days Estimated gestational age from initial scan: 21 weeks 0 days Composite gestational age from present scan: 21 weeks 5 days Estimated weight and percentile: 4 53 g, 86th percentile Measurement variability in biometric dating: +/- 10 days from 12-20 weeks gestation, +/- 2 weeks from 20-30 weeks gestation, +/- 3 weeks at 30 weeks gestation or later. Anatomic survey: Neuro: Ventricles are normal at less than 10 mm. Cisterna magna is normal at 3-11 mm. Cerebellum i s normal in size and morphology. Face: Nose and lips, facial profile are not well seen. Spine: No evidence for spina bifida. Heart: 4-chambered heart and ventricular outflow tracts are not well seen. Diaphragm: Diaphragm is intact. Stomach: Left-sided stomach is present. Kidneys: No hydronephrosis. Normal is less than 5 mm in 2nd trimester, less than 7 mm in 3rd trimester. Cord: 3 vessel cord has orthotopic insertion. Bladder: Normal in size. Extremities: All 4 extremities are visualized. IMPRESSION: Single live intrauterine with ultrasound gestational age today of 21 weeks 5 days. facial structures as well as four-chamber heart/outflow tracts are not well visualized. Follow- up imaging is recommended for further evaluation. Growth is at the 86th percentile. Reviewed by: Reshma Vitale MD on 12/10/2021 5:08 PM PST Approved by: Reshma Vitale MD on 12/10/2021 5:08 PM [facility] Station ID: [id number]
== END 2021-12-10 10:32 | disposition home or self-care (01) ==
LOC: DI 10:31
PROVIDERS: ATTEND Obstetrics & Gynecology
DX: Z36.89 Encounter for other specified antenatal screening (principal); Z34.92 Encounter for supervision of normal pregnancy, unspecified, second trimester; Z3A.21 21 weeks gestation of pregnancy
CPT/HCPCS: 81599

== ENCOUNTER 2022-01-08 15:40 | Outpatient (CLI) | payer MEDICAID ==
[2022-01-10 14:16] LABS: NIL 0.05 IU/mL; TB1-NIL 0.02 IU/mL; TB2-NIL 0.01 IU/mL
== END 2022-01-08 15:41 | disposition home or self-care (01) ==
LOC: LAB 15:40
PROVIDERS: ATTEND Obstetrics & Gynecology
DX: Z11.1 Encounter for screening for respiratory tuberculosis (principal)
CPT/HCPCS: 36415; 86480

== ENCOUNTER 2022-01-12 15:14 | Outpatient (CLI) | payer MEDICAID ==
--- NOTE | 2022-01-13 17:23 | Ultrasound Report ---
PROCEDURE: OB F/U or Repeat INDICATIONS: SUPERVISION OF OUTSIDE/PRIOR DATING DATA: Last menstrual period (LMP): 07/20/2021. LMP-based estimated date of delivery (SAMPSON): 04/26/2022. First dating scan (date and location): 09/09/2021. Estimated date of delivery (SAMPSON) from first dating scan: 04/22/2022. The below data below was generated using the study generated SAMPSON of 04/22/2022 TECHNIQUE: Real-time scanning was performed of the fetus, with image documentation and biometric measurements. Endovaginal scanning: Not indicated COMPARISON: 09/09/2021, 12/10/2021 FINDINGS: General: A single living intrauterine gestation is present. Presentation: Vertex Placenta: Placental position is anterior, without previa. Amniotic fluid index: 18.7 cm, normal for gestational age. heart rate: 167 beats per minute. Maternal cervical canal: 5.4 cm long and is closed; normal length is 2.5 cm or more. Estimated gestational age from initial scan: 25 weeks, 5 days facial profile, right ventricular outflow track, chest, stomach, and bilateral kidneys ar e visualized and are within normal limits. IMPRESSION: 1. Single live intrauterine gestation with fetus in vertex presentation. heart rate is 167 bpm. Normal amount of amniotic fluid. 2. facial profile, and right ventricular outflow tract are visualized and are within normal [place] its. Reviewed by: Erich Higgins MD on 01/13/2022 5:22 PM PDT Approved by: Erich Higgins MD on 01/13/2022 5:22 PM PDT Station ID: [id number]
== END 2022-01-12 15:15 | disposition home or self-care (01) ==
LOC: DI 15:14
PROVIDERS: ATTEND Obstetrics & Gynecology
DX: Z34.92 Encounter for supervision of normal pregnancy, unspecified, second trimester (principal)

== ENCOUNTER 2022-02-18 11:01 | Outpatient (CLI) | payer MEDICAID ==
[2022-02-18 11:08] LABS: HCT - HEMATOCRIT 35.8 % (37.0-47.0); HGB - HEMOGLOBIN 11.8 g/dL (12.0-16.0); MEAN CORPUSCULAR HEMOGLOBIN 31.1 pg (27.0-31.0); MEAN CORPUSCULAR VOLUME 94.5 fL (81.0-99.0); MEAN PLATELET VOLUME 9.3 fL (7.9-10.8); RED BLOOD COUNT 3.79 10^6/uL (4.20-5.40); RED CELL DISTRIBUTION WIDTH 13.9 % (12.0-15.0); WHITE BLOOD COUNT 12.3 x10^3/uL (4.8-10.8)
== END 2022-02-18 23:59 | disposition home or self-care (01) ==
LOC: LAB 11:01
PROVIDERS: ATTEND Obstetrics & Gynecology
DX: Z34.90 Encounter for supervision of normal pregnancy, unspecified, unspecified trimester (principal); Z36.89 Encounter for other specified antenatal screening
CPT/HCPCS: 36415; 82950; 85027

== ENCOUNTER 2022-04-03 15:30 | Outpatient (CLI) | payer MEDICAID | END 2022-04-03 23:59 | disposition home or self-care (01) | LOC: LAB.WC 15:30 | PROVIDERS: ATTEND Obstetrics & Gynecology | DX: Z36.85 Encounter for antenatal screening for Streptococcus B (principal) | CPT/HCPCS: 87797 ==

== ENCOUNTER 2022-04-16 00:28 | Inpatient (IN) | payer MEDICAID ==
[2022-04-16] MEDS ORDERED: oxyCODONE 5 MG TABLET PO SCH (03:00)
[2022-04-16] MEDS ORDERED: LIDOCAINE-MPF 1% 30 ML VIAL ID PRN (03:07)
[2022-04-16] MEDS ORDERED: OXYTOCIN/SODIUM CHLORIDE 500 ML IV PRN ×2 (03:07→09:43)
[2022-04-16] MEDS ORDERED: OXYTOCIN 10 UNIT/ML VIAL IM PRN (03:07)
[2022-04-16] MEDS ORDERED: TRANEXAMIC ACID IN NACL 1,000 MG/100 ML BAG IV PRN (03:07)
[2022-04-16] MEDS ORDERED: TERBUTALINE 1 MG/ML VIAL SUBQ PRN (03:07)
[2022-04-16] MEDS ORDERED: NIFEdipine 10 MG CAPSULE PO PRN (03:07)
[2022-04-16] MEDS ORDERED: miSOPROStoL 200 MCG TABLET BC PRN (03:07)
[2022-04-16] MEDS ORDERED: miSOPROStoL 200 MCG TABLET PR PRN (03:07)
[2022-04-16] MEDS ORDERED: fentaNYL 100 MCG/2 ML VIAL IVP PRN ×2 (03:07→08:05)
[2022-04-16] MEDS ORDERED: hydrALAZINE INJ 20 MG/ML VIAL IVP PRN ×2 (03:07)
[2022-04-16] MEDS ORDERED: METHYLERGONOVINE 0.2 MG/ML VIAL IM PRN (03:07)
[2022-04-16] MEDS ORDERED: CARBOPROST TROMETHAMINE 250 MCG/ML AMP IM PRN (03:07)
[2022-04-16] MEDS ORDERED: LABETALOL 20 MG/4 ML SYRINGE IVP PRN ×3 (03:07)
[2022-04-16] MEDS ORDERED: diphenhydrAMINE 25 MG CAPSULE PO PRN (03:16)
[2022-04-16] MEDS: LACTATED RINGERS 1,000 ML IV ONE ×2 (03:30→07:49)
--- NOTE | 2022-04-16 07:53 | HISTORY & PHYSICAL EXAMINATION ---
Admit History - Visit Reason Visit Reason: Membranes rupture - : 3 Parity: 2 Care: positive: [facility] Risk/History: positive: Previous , Premature rupture membrane Smoking Status: Never smoker - Mother's Labs Mother's Blood Type: positive: A Mother's RH: positive: Positive GBS: positive: Group B Step Negative Rubella Status: positive: Immune - Other Maternal History Other Maternal History: Med: Denies Surg: CD x2, cholecystectomy 2019 Fam: mother with lymphoma, CAD Social: denies kathryn Meds/Allgy - Home Medications Home Medications: Ambulatory Orders Medication Instructions Recorded Confirmed Ferrous Sulfate 325 mg PO DAILY 09/26/20 09/26/20 Pnv No.121/Iron/Folic Acid 1 each PO DAILY 09/26/20 09/26/20 [ Multivitamin Tablet] HYDROcod/ACETAM 5/325 [[place] 5/325] 1 each PO Q6H PRN #30 tablet 10/01/20 Norethindrone [Ortho Micronor] 0.35 mg PO DAILY 10/01/20 10/01/20 Ondansetron Odt [Zofran Odt] 4 mg PO Q6H PRN #15 tablet 10/01/20 - Allergies Allergies/Adverse Reactions: Allergies Allergy/AdvReac Type Severity Reaction Status Date / Time No Known Drug Allergies Allergy Verified 11/21/21 12:42 Review of Systems - All Other Systems All Other Systems: reports: Reviewed and negative Physical - Abdominal Exam Vital Signs: Temp Pulse Resp BP Pulse Ox 98.1 F 04/16/22 05:25 111/60 Contraction Frequency (min/apart): occasional Contraction Intensity: positive: Mild Uterine Resting Tone: positive: Soft - Monitoring Heart Rate Baseline: 140 Strip Review: positive: Category I - Presentation Presentation: positive: Vertex - Vaginal Exam Membranes: positive: Membranes ruptured (2300) Dilation (in cm): 1 Cervical Position: positive: Midposition - Speculum Exam Speculum Exam Performed: positive: No Findings: positive: Gross leak (positive), Nitrazine Plan for Labor - Plan For Labor Plan for Labor: 36yo at 38.4w presenting with PROM, history of CD x2 - Admit - Plan for RCD. Patient ate, initially awaited NPO as she is not in labor. RCD delayed due to OB emergency on the unit, will proceed now.
[2022-04-16] MEDS ORDERED: AZITHROMYCIN INJ 500 MG in SODIUM CHLORIDE 0.9% 250 ML IV SCH ×2 (08:00→09:00)
[2022-04-16] MEDS ORDERED: ATROPINE ABBOJECT 1 MG/10 ML SYRINGE IVP PRN (08:05)
[2022-04-16] MEDS ORDERED: HYDROmorphone 0.5 MG/0.5 ML SYRINGE IVP PRN (08:05)
[2022-04-16] MEDS ORDERED: METOCLOPRAMIDE 10 MG/2 ML VIAL IVP PRN (08:05)
[2022-04-16] MEDS ORDERED: ONDANSETRON 4 MG/2 ML VIAL IVP PRN (08:05)
[2022-04-16] MEDS ORDERED: MORPHINE 2 MG/ML CARPUJECT IVP PRN (08:05)
[2022-04-16] MEDS ORDERED: ePHEDrine 50 MG/ML VIAL IVP PRN (08:05)
[2022-04-16] MEDS ORDERED: NALOXONE 0.4 MG/ML VIAL IVP PRN ×2 (08:05→09:43)
--- NOTE | 2022-04-16 08:05 | ANESTHESIA ---
Pre-Anesthesia VS, & Labs - Diagnosis ruptured membranes - Procedure C/S Vital Signs: Temp Pulse Resp BP Pulse Ox 37.2 C 82 17 111/59 L 100 04/16/22 07:54 04/16/22 07:54 04/16/22 07:54 04/16/22 07:54 04/16/22 07:54 Height: 5 ft 6 in Weight (kg): 88.904 kg Body Mass Index: 31.6 BMI Classification: Obese - NPO >8 hours - Is Patient ?: Yes - Lab Results Current Lab Results: Laboratory Tests 04/16/22 03:04: Blood Type A POSITIVE, Antibody Screen NEGATIVE Home Medications and Allergies Active Medications Carboprost Tromethamine (Carboprost Tromethamine 250 Mcg/Ml Amp) 250 mcg IM .ONCE PRN PRN Reason: Hemorrhage Diphenhydramine HCl (Diphenhydramine 25 Mg Capsule) 25 mg PO QPM PRN PRN Reason: Insomnia Last Admin: 04/16/22 03:41 Dose: 25 mg Fentanyl (Fentanyl 100 Mcg/2 Ml Vial) 50 mcg IVP Q1H PRN PRN Reason: Severe Pain (score 7-10) Hydralazine HCl (Hydralazine Inj 20 Mg/Ml Vial) 5 - 10 mg IVP Q20M PRN; P rotocol PRN Reason: SBP> or= 160 OR DBP> or= 110 Hydralazine HCl (Hydralazine Inj 20 Mg/Ml Vial) 10 mg IVP .ONCE PRN; Protocol PRN Reason: SBP> or= 160 OR DBP> or= 110 Oxytocin/Sodium Chloride (Pitocin/Sodium Chloride) 500 mls @ 999 mls/hr IV PRN PRN; Protocol PRN Reason: POST- HEMORR PREVENTION Tranexamic Acid (Tranexamic 1,000 Mg/100ml-Nacl) 1,000 mg in 100 mls @ 600 mls/hr IV Q30M PRN PRN Reason: EBL >1200mL and within 3hr Cefazolin Sodium 2 gm/ Sodium (Chloride) 50 mls @ 100 mls/hr IV ONCE ONE Stop: 04/16/22 08:59 Azithromycin 500 mg/ Sodium (Chloride) 250 mls @ 250 mls/hr IV ONCE STEPHANI Stop: 04/16/22 10:00 Labetalol HCl (Labetalol 20 Mg/4 Ml Syringe) 20 - 80 mg IVP Q10M PRN; Protocol PRN Reason: SBP> or= 160 OR DBP> or= 110 Labetalol HCl (Labetalol 20 Mg/4 Ml Syringe) 20 mg IVP .ONCE PRN; Protocol PRN Reason: SBP> or= 160 OR DBP> or= 110 Labetalol HCl (Labetalol 20 Mg/4 Ml Syringe) 20 - 40 mg IVP Q10M PRN; Protocol PRN Reason: SBP> or= 160 OR DBP> or= 110 Lidocaine HCl (Lidocaine-Mpf 1% 30 Ml Vial) 30 ml ID ONCE PRN PRN Reason: PERINEAL REPAIR Stop: 04/17/22 03:07 Methylergonovine Maleate (Methylergonovine 0.2 Mg/Ml Vial) 0.2 mg IM .ONCE PRN PRN Reason: Hemorrhage Misoprostol (Misoprostol 200 Mcg Tablet) 600 mcg BC .ONCE PRN PRN Reason: Hemorrhage Misoprostol (Misoprostol 200 Mcg Tablet) 800 mcg [place] .ONCE PRN PRN Reason: Hemorrhage Nifedipine (Nifedipine 10 Mg Capsule) 10 - 20 mg PO Q20M PRN; Protocol PRN Reason: SBP> or= 160 OR DBP> or= 110 Oxycodone HCl (Oxycodone 5 Mg Tablet) 5 - 10 mg PO ONCE STEPHANI Stop: 04/17/22 02:59 Last Admin: 04/16/22 03:35 Dose: 5 mg Oxytocin (Oxytocin 10 Unit/Ml Vial) 10 unit IM .ONCE PRN PRN Reason: Step One if no IV access. Sodium Chloride (Sodium Chloride Flush 0.9% 10 Ml Syringe) 10 ml IVP PRN PRN PRN Reason: NEEDED PER PROVIDER ORDERS Terbutaline Sulfate (Terbutaline 1 Mg/Ml Vial) 0.25 mg SUBQ .ONCE PRN PRN Reason: Tachystole Ferrous Sulfate 325 mg PO DAILY 09/26/20 Pnv No.121/Iron/Folic Acid [ Multivitamin Tablet] 1 each PO DAILY 09/26/20 Norethindrone [Ortho Micronor] 0.35 mg PO DAILY 10/01/20 Allergies/Adverse Reactions: Allergies Allergy/AdvReac Type Severity Reaction Status Date / Time No Known Drug Allergies Allergy Verified 11/21/21 12:42 Anes History & Medical History - Anesthetic History Anesthesia Complications: reports: No previous complications Family history of Anesthesia Complications: Denies Family history of Malignant Hyperthermia: Denies - Medical History Cardiovascular: reports: None Pulmonary: reports: None Gastrointestinal: reports: None Urinary: reports: None Musculoskeletal: reports: None Endocrine/Autoimmune: reports: None Skin: reports: None Smoking Status: Never smoker - Surgical History Gynecologic: reports: section - Obstetrical History : 3 Parity: 2 Events: reports: Previous , Premature rupture membrane Exam General: Alert, Oriented x3, Cooperative Dental: WNL Mouth Openin Fingerbreadth Neck Mobility: Normal Mallampati classification: II Thyromental Distance: 4-6 cm Respiratory: Lungs clear Cardiovascular: Regular rate Plan Anesthesia Type: General, Spinal, Transverse Abdominis Plane (TAP) Block Consent for Procedure(s) Verified and Reviewed: Yes Code Status: Attempt Resuscitation ASA classification: 2-Mild systemic disease Is this case an emergency?: Yes
[2022-04-16] MEDS ORDERED: fentaNYL 100 MCG/2 ML VIAL ONE (08:16)
[2022-04-16] MEDS ORDERED: ONDANSETRON 4 MG/2 ML VIAL ONE (08:17)
[2022-04-16] MEDS ORDERED: ceFAZolin 1 GM VIAL ONE (08:17)
[2022-04-16] MEDS ORDERED: OXYTOCIN 10 UNIT/ML VIAL ONE ×2 (08:30→08:36)
[2022-04-16] MEDS ORDERED: ROPIVACAINE 0.5% PF 20 ML AMPULE ONE (08:31)
[2022-04-16] MEDS ORDERED: SODIUM CHLORIDE 0.9% 10 ML VIAL IVP ONE (08:36)
[2022-04-16] MEDS ORDERED: DEXAMETHASONE 4 MG/ML VIAL ONE ×2 (08:36→08:58)
[2022-04-16] MEDS ORDERED: LACTATED RINGERS 1,000 ML IV SCH ×2 (09:00→10:00)
[2022-04-16] MEDS ORDERED: ACETAMINOPHEN 1,000 MG/100 ML 100 ML IV ONE (09:05)
[2022-04-16] MEDS ORDERED: CALCIUM CARBONATE CHEW 500 MG TABLET PO PRN (09:43)
[2022-04-16] MEDS ORDERED: HYDROCORTISONE 1% CREAM 28 GM TUBE TOP PRN (09:43)
[2022-04-16] MEDS ORDERED: WITCH HAZEL/GLYCERIN 1 PAD TOP PRN (09:43)
--- NOTE | 2022-04-16 09:53 | DELIVERY NOTE ---
Delivery Note - Infant Delivery Method Infant Delivery Method: positive: Repeat - Presentation Presentation: positive: Vertex - Nuchal Cord Nuchal Cord: positive: None - Anesthetic Anesthetic Type: - Amniotic Fluid Description Amniotic Fluid Description: positive: Clear - Delivery Outcome Delivery Outcome: positive: Livebirth - [place]: positive: Bulb syringe, Stimulated, Warmer used [place] sex: positive: Male - Cord Cord: positive: 3 vessels - Placenta Placenta: positive: Intact, Spontaneous, Expressed - Estimated Blood Loss Estimated Blood Loss (in cc): 600 - Post Delivery Events Post Delivery Events: positive: No post delivery events - Delivery Comments (Free Text/Narrative) Delivery Comments (Free Text/Narrative): See operative note
[2022-04-16] MEDS ORDERED: LACTATED RINGERS 1,000 ML IV ONE (09:54)
--- NOTE | 2022-04-16 09:55 | OPERATIVE REPORT ---
Operative Report - General Admit Date: 04/16/22 Procedure Date: 04/16/22 Planned Procedure: Repeat section Pre-Op Diagnosis: 36 at 38.4w, premature membrane rupture, prior CDx2, desires repeat CD Procedure Performed: Repeat section Post Op Diagnosis: 36 at 38.4w, premature membrane rupture, prior CDx2, desires repeat CD - Procedure Note Primary Surgeon: Aimee Rios DO Secondary Surgeon: Jeremy Corral MD Anesthesia Provider: Angelika Knutson CRNA Anesthesia Technique: Spinal Pathology: None Placenta discarded Estimated Blood Loss (mL): 600 Indications: Premature rupture of membranes, prior CDx2 and desires repeat CD Findings: Thinned lower uterine segment but otherwise normal uterus. Normal oviducts and ovaries. Complications: None - Other Other Information/Narrative: Under spinal anaesthetic with a Hutchinson catheter inserted, the patient was prepped and draped in the usual sterile fashion in the supine position with a leftward tilt. A Pfannenstiel incision was made through the patients previous incision. The incision was carried down to the fascia with sharp dissection and cautery. The fascia was incised transversely and dissected off the rectus muscle using blunt and sharp dissection. Electrocautery was used for hemostasis. The peritoneum was opened taking care not to injure the bladder. Scar tissue noted but no significant adhesions. The vesicouterine peritoneum was dissected off the lower uterine segment. The lower segment was assessed and a low transverse incision was made. The uterine incision was extended bluntly. The fetus was presenting as a vertex. The head was delivered without difficulty and the rest of the body followed easily. After delayed cord clamping, the cord was clamped twice and cut and the baby transferred to the warm, awaiting the pediatric staff. Cord blood obtained. The placenta was then delivered with assistance. The uterus was explored and was empty of all tissue. The uterus was exteriorized for better visualization. The uterine incision was then closed in one layer with 0-Monocryl in running, locked fashion. Tubes and ovaries were examined and appeared normal. Hemostasis noted at all dissection sites. The fascia was closed with 0-Vicryl in a running unlocked fashion. Subcutaneous layer closed with 2-0 chromic. Skin closed with 4-0 Monocryl subcuticular suture. At the end of the procedure all sponges, instruments, and sharps were counted and correct. Estimated blood loss was 600cc. The patient and baby were taken to the recovery in stable condition.
--- NOTE | 2022-04-16 11:28 | ANESTHESIA POST OP EVALUATION ---
Anesthesia Post Eval - Post Anesthesia Eval Vitals: Last Vital Signs Temp 36.6 C 04/16/22 10:15 Pulse 58 L 04/16/22 10:15 Resp 12 04/16/22 10:15 BP 113/61 04/16/22 10:15 Pulse Ox 99 04/16/22 10:15 CV Function Including HR & BP: Stable Pain Control: Satisfactory Nausea & Vomiting: Negative Mental Status: Baseline Respiratory Status: Airway Patent Hydration Status: Satisfactory Anesthesia Complications: None
[2022-04-16] MEDS: KETOROLAC 30 MG/ML VIAL IVP SCH ×3 (11:43→23:59)
[2022-04-16] MEDS: SODIUM CHLORIDE FLUSH 0.9% 10 ML SYRINGE IVP PRN ×2 (11:44→17:59)
[2022-04-16] MEDS ORDERED: IBUPROFEN 600 MG TABLET PO SCH (12:00)
[2022-04-16] MEDS: oxyCODONE 5 MG TABLET PO PRN ×3 (12:51→21:05)
[2022-04-16] MEDS: ACETAMINOPHEN 500 MG TABLET PO SCH ×2 (17:19→18:00)
[2022-04-16] MEDS: DOCUSATE SODIUM 100 MG CAPSULE PO SCH (22:13)
[2022-04-17] MEDS: oxyCODONE 5 MG TABLET PO PRN ×6 (01:39→21:12)
[2022-04-17] MEDS: ACETAMINOPHEN 500 MG TABLET PO SCH ×3 (01:39→17:27)
[2022-04-17] MEDS: SIMETHICONE CHEW 80 MG TABLET PO PRN ×3 (05:32→18:22)
[2022-04-17] MEDS: KETOROLAC 30 MG/ML VIAL IVP SCH (05:50)
[2022-04-17 06:23] LABS: HCT - HEMATOCRIT 31.5 % (37.0-47.0); HGB - HEMOGLOBIN 10.7 g/dL (12.0-16.0); MEAN CORPUSCULAR HEMOGLOBIN 32.3 pg (27.0-31.0); MEAN CORPUSCULAR VOLUME 95.2 fL (81.0-99.0); MEAN PLATELET VOLUME 9.8 fL (7.9-10.8); RED BLOOD COUNT 3.31 10^6/uL (4.20-5.40); RED CELL DISTRIBUTION WIDTH 14.7 % (12.0-15.0); WHITE BLOOD COUNT 16.6 x10^3/uL (4.8-10.8)
[2022-04-17] MEDS: DOCUSATE SODIUM 100 MG CAPSULE PO SCH ×2 (09:24→21:12)
[2022-04-17] MEDS: IBUPROFEN 800 MG TABLET PO SCH ×2 (12:08→18:22)
--- NOTE | 2022-04-17 12:36 | PROVIDER PROGRESS NOTE ---
Subjective - Prog Note Date Prog Note Date: 04/17/22 - Subjective Subjective: Subjective Patient reports she is doing well. Lochia appropriate. Denies heavy bleeding. Ambulating. Pelvic and abdominal pain well-controlled. Tolerating oral intake. Diet: Regular. Voiding without difficulty. Passing flatus. Denies BM. Patient is bonding with baby in room Breast feeding going well. Denies feeling lightheaded, dizzy or excessively fatigued. control: Partner vasectomy Objective General: Alert, oriented, no apparent distress. Cardiovascular: Regular rate. Regular rhythm. Lungs: No increased work of breathing. Abdomen: Uterus firm. Below umbilicus. No guarding or rebound. Incision: Clean, dry, and intact. Assessment and Plan day 1. -Routine care -Anticipate discharge tomorrow Objective - Vital Signs/Intake & Output Vital Signs: Vital Signs x48h Temp Pulse Resp BP Pulse Ox 04/17/22 10:31 97.7 F 60 16 107/60 100 04/17/22 06:30 99.0 F 66 16 99/55 L 99 Intake & Output: Intake & Output 04/14/22 04/15/22 04/16/22 04/17/22 23:59 23:59 23:59 23:59 Intake Total 2500 2400 Output Total 448 650 Balance 2052 1750 - Lab Results Fish Bones: 04/17/22 06:15 Other Labs: Lab Results x24hrs 04/17/22 Range/Units 06:15 WBC 16.6 H (4.8-10.8) x10^3/uL RBC 3.31 L (4.20-5.40) 10^6/uL Hgb 10.7 L (12.0-16.0) g/dL Hct 31.5 L (37.0-47.0) % MCV 95.2 (81.0-99.0) fL MCH 32.3 H (27.0-31.0) pg MCHC 34.0 (32.0-36.0) g/dL RDW 14.7 (12.0-15.0) % Plt Count 231 (130-450) 10^3/uL MPV 9.8 (7.9-10.8) fL
[2022-04-18] MEDS: IBUPROFEN 800 MG TABLET PO SCH ×3 (01:01→12:11)
[2022-04-18] MEDS: ACETAMINOPHEN 500 MG TABLET PO SCH ×2 (01:01→09:14)
[2022-04-18] MEDS: oxyCODONE 5 MG TABLET PO PRN ×2 (04:14→09:15)
[2022-04-18 08:11] VITALS: BP 118/70
[2022-04-18] MEDS: DOCUSATE SODIUM 100 MG CAPSULE PO SCH (09:14)
--- NOTE | 2022-04-18 09:20 | Discharge Plan ---
Discharge Plan Problem Reviewed?: Yes Disposition: Home, Self Care Condition: Good Diet: Regular Shower Restrictions: No Driving Restrictions: Yes (For two weeks or while taking opioids. ) Instruction Topics: C Section Dc No Smoking: If you smoke, Please STOP! Call for help. Follow-up with: Jeremy Corral MD [Provider Admit Priv/Credential] -
--- NOTE | 2022-04-18 09:23 | DISCHARGE SUMMARY ---
Discharge Summary Admit Date: 04/16/22 Discharge Date: 04/18/22 Discharging Provider: Jeremy Corral MD Code Status: Attempt Resuscitation Condition at Discharge: Good Discharge Disposition: 01 Home, Self Care - DIAGNOSES Admission Diagnoses: 39 weeks gestation Previous low transverse section x2 Discharge Diagnoses with Status of Each Condition: Previous low transverse section x2: Status post repeat low-transverse section 39 weeks gestation: Delivered - HPI History of Present Illness: Subjective Patient reports she is doing well. Lochia appropriate. Denies heavy bleeding. Ambulating. Pelvic and abdominal pain well-controlled. Does have some left lower periincisional pain. While more than others, she is tolerating this well. Tolerating oral intake. Diet: Regular. Voiding without difficulty. Passing flatus. Patient is bonding with baby in room Breast feeding going well. Denies feeling lightheaded, dizzy or excessively fatigued. Control: Partner vasectomy Objective General: Alert, oriented, no apparent distress. Cardiovascular: Regular rate. Regular rhythm. Lungs: No increased work of breathing. Abdomen: Uterus firm. Below umbilicus. No guarding or rebound. Incision: Clean, dry, and intact. - HOSPITAL COURSE Hospital Course: Patient presented to the hospital at 39 weeks gestation for planned repeat low-t ransverse section. was complicated by moderate mount of scar tissue, but not excessively difficult. Patient had an unremarkable postoperative course and was discharged on day 2. weight: 4060 g - ALLERGIES Allergies/Adverse Reactions: Allergies Allergy/AdvReac Type Severity Reaction Status Date / Time No Known Drug Allergies Allergy Verified 11/21/21 12:42 - MEDICATIONS Home Medications: Ambulatory Orders Medication Instructions Recorded Confirmed Ferrous Sulfate 325 mg PO DAILY 09/26/20 09/26/20 Pnv No.121/Iron/Folic Acid 1 each PO DAILY 09/26/20 09/26/20 [ Multivitamin Tablet] HYDROcod/ACETAM 5/325 [[place] 5/325] 1 each PO Q6H PRN #30 tablet 10/01/20 Norethindrone [Ortho Micronor] 0.35 mg PO DAILY 10/01/20 10/01/20 Ondansetron Odt [Zofran Odt] 4 mg PO Q6H PRN #15 tablet 10/01/20 Acetaminophen [Pain Relief Extra 1,000 mg PO Q6HR #30 tablet 04/18/22 Strength] Docusate Sodium 100Mg Capsule 100 - 200 mg PO BID PRN #60 cap 04/18/22 [Colace 100Mg Capsule] Ibuprofen [Motrin] 600 mg PO Q6H PRN #30 tab 04/18/22 oxyCODONE [Roxicodone] 2.5 - 5 mg PO Q4H PRN #24 tablet 04/18/22 - LABS Result Diagrams: 04/17/22 06:15 - FOLLOW UP Follow Up: Jeremy Corral MD at [facility] in 1 week - TIME SPENT Time Spent in Discharge (Minutes): 20
== END 2022-04-18 12:19 | disposition home or self-care (01) | DRG 788 ==
LOC: WFO 00:28 → FBP 00:31 → WFO 03:55 → FBP 04:15 → INTOOBSV 04:15 → UNDOADMOB 04:15 → INTOOBSV 04:23 → OBSVTOIN 04:23 → UNDODISIN 04-18 12:19
PROVIDERS: ADMIT Obstetrics & Gynecology; ATTEND Obstetrics & Gynecology
PROC: 10D00Z1 Extraction of Products of Conception, Low, Open Approach (ICD-10-PCS; principal; 2022-04-16 09:00)
DX: O34.211 Maternal care for low transverse scar from previous cesarean delivery (principal); Z3A.39 39 weeks gestation of pregnancy; Z37.0 Single live birth
CPT/HCPCS: 36415; 59025; 85027; 86850; 86900; 86901; 99215; A9270; J0131; J7040; J7120; 99214

== ENCOUNTER 2024-01-03 08:00 | Outpatient (CLI) | payer MEDICAID ==
[2024-01-03 17:23] LABS: BILIRUBIN,URINE NEGATIVE (NEGATIVE); GLUCOSE, URINE (UA) NEGATIVE (NEGATIVE); KETONES,URINE (UA) NEGATIVE (NEGATIVE); LEUKOCYTE ESTERASE, URINE NEGATIVE (NEGATIVE); NITRITE,URINE NEGATIVE (NEGATIVE); OCCULT BLOOD,URINE NEGATIVE (NEGATIVE); PROTEIN,URINE NEGATIVE (NEGATIVE); UROBILINOGEN,URINE 0.2 (NORMAL) E.U./dL (NORMAL)
[2024-01-03 18:04] LABS: AMORPHOUS SEDIMENT,UR Marked /LPF; BACTERIA,URINE None Seen /HPF (None Seen); CLARITY,URINE TURBID (CLEAR); RBC,URINE None Seen /HPF (0-5); SQUAMOUS EPITHELIAL CELL,UR RARE Squamous (<= Few); WBC,URINE 0-3 /HPF (0-5)
== END 2024-01-03 23:59 | disposition home or self-care (01) ==
LOC: LAB.WC 08:00
PROVIDERS: ATTEND Obstetrics & Gynecology
DX: Z34.80 Encounter for supervision of other normal pregnancy, unspecified trimester (principal)
CPT/HCPCS: 81001; 87086

== ENCOUNTER 2024-01-18 09:13 | Outpatient (CLI) | payer MEDICAID ==
--- NOTE | 2024-01-18 12:13 | Ultrasound Report ---
PROCEDURE: OB 1st Trimester INDICATIONS: POSITIVE TEST OUTSIDE/PRIOR DATING DATA: Last menstrual period (LMP): 11/13/2023. LMP-based estimated date of delivery (SAMPSON): 08/19/2024. First dating scan (date and location): 01/18/2024 at [facility]. Estimated date of delivery (SAMPSON) from first dating scan: 08/11/2024. TECHNIQUE: Real-time scanning was performed of the fetus and maternal pelvic organs, with image documentation. COMPARISON: None. FINDINGS: Intrauterine gestational sac present. Embryo: Mean gestational sac diameter is 5.01 cm, 10 weeks and 5 days [place]-rump length is 3.67 cm, 10 weeks and 4 days Estimated gestational age based on initial ultrasound is 10 weeks and 4 days Heart rate: 171 bpm. Other: No perigestational fluid collection. Measurement variability in dating: +/- 4 weeks by LMP, +/- 7 days by mean sac diameter (use before 6 weeks gestation if crown-rump length not able to be measured), +/- 5 days by crown-rump length (6-12 weeks gestation). Maternal organs: Ovaries appear within normal limits. There is a corpus luteal cyst in the right ova ry. IMPRESSION: 1.Single living intrauterine gestation with estimated gestational age of 10 weeks and 4 days. 2.Corpus luteal cyst in the right ovary measuring 1.4 x 1.2 x 1.7 cm. Reviewed by: Coreen Crane MD on 01/18/2024 12:12 PM PDT Approved by: Coreen Crane MD on 01/18/2024 12:12 PM PDT Station ID: [id number]
== END 2024-01-18 09:14 | disposition home or self-care (01) ==
LOC: DI 09:13
PROVIDERS: ATTEND Obstetrics & Gynecology
DX: O34.81 Maternal care for other abnormalities of pelvic organs, first trimester (principal); N83.11 Corpus luteum cyst of right ovary; Z3A.10 10 weeks gestation of pregnancy

== ENCOUNTER 2024-01-21 08:45 | Outpatient (CLI) | payer MEDICAID ==
[2024-01-21 09:08] LABS: BASOPHILS % (AUTO) 0.2 %; EOSINOPHILS # (AUTO) 0.1 10^3/uL (0.0-0.7); EOSINOPHILS % (AUTO) 0.6 %; HCT - HEMATOCRIT 37.5 % (37.0-47.0); HGB - HEMOGLOBIN 12.5 g/dL (12.0-16.0); MEAN CORPUSCULAR HEMOGLOBIN 31.6 pg (27.0-31.0); MEAN CORPUSCULAR HGB CONC 33.3 g/dL (32.0-36.0); MEAN CORPUSCULAR VOLUME 94.7 fL (81.0-99.0); MEAN PLATELET VOLUME 9.7 fL (7.9-10.8); MONOCYTES % (AUTO) 5.6 %; NEUTROPHILS # (AUTO) 13.3 10^3/uL (1.5-6.6); NEUTROPHILS % (AUTO) 76.2 %; PLT - PLATELET COUNT 375 10^3/uL (130-450); RED BLOOD COUNT 3.96 10^6/uL (4.20-5.40); RED CELL DISTRIBUTION WIDTH 12.9 % (12.0-15.0); WHITE BLOOD COUNT 17.5 x10^3/uL (4.8-10.8)
[2024-01-22 05:12] LABS: HIV SCREEN 4TH GENERATION Non Reactive (Non Reactive)
[2024-01-22 06:10] LABS: HBsAG SCREEN Negative (Negative)
[2024-01-22 08:10] LABS: VARICELLA-ZOSTER AB IGG 1083 index (Immune >165)
[2024-01-24 05:08] LABS: HCV AB Non Reactive (Non Reactive)
== END 2024-01-21 08:46 | disposition home or self-care (01) ==
LOC: LAB 08:45
PROVIDERS: ATTEND Obstetrics & Gynecology
DX: Z34.80 Encounter for supervision of other normal pregnancy, unspecified trimester (principal); Z36.89 Encounter for other specified antenatal screening
CPT/HCPCS: 36415; 85025; 86592; 86762; 86787; 86803; 86850; 86900; 86901; 87340; 87389

== ENCOUNTER 2024-01-27 08:00 | Outpatient (CLI) | payer OTHER, MEDICAID ==
[2024-01-27 16:42] LABS: BILIRUBIN,URINE NEGATIVE (NEGATIVE); GLUCOSE, URINE (UA) NEGATIVE (NEGATIVE); KETONES,URINE (UA) NEGATIVE (NEGATIVE); LEUKOCYTE ESTERASE, URINE NEGATIVE (NEGATIVE); NITRITE,URINE NEGATIVE (NEGATIVE); OCCULT BLOOD,URINE NEGATIVE (NEGATIVE); PROTEIN,URINE NEGATIVE (NEGATIVE); UROBILINOGEN,URINE 0.2 (NORMAL) E.U./dL (NORMAL)
[2024-01-27 16:45] LABS: CLARITY,URINE CLEAR (CLEAR)
[2024-01-27 16:51] LABS: BACTERIA,URINE Rare /HPF (None Seen); RBC,URINE 0-5 /HPF (0-5); SQUAMOUS EPITHELIAL CELL,UR MOD Squamous (<= Few); WBC,URINE 0-3 /HPF (0-5)
[2024-01-27 23:12] LABS: CHLAMYDIA TRACHOMATIS DNA NEGATIVE (NEGATIVE); NEISSERIA GONORRHOEAE DNA NEGATIVE (NEGATIVE); TRICHOMONAS VAGINALIS DNA NEGATIVE (NEGATIVE)
== END 2024-01-27 23:59 | disposition home or self-care (01) ==
LOC: LAB.WC 08:00
PROVIDERS: ATTEND Nurse Practitioner
DX: O34.211 Maternal care for low transverse scar from previous cesarean delivery (principal); Z11.3 Encounter for screening for infections with a predominantly sexual mode of transmission
CPT/HCPCS: 81001; 87086; 87491; 87591; 87661

== ENCOUNTER 2024-04-24 15:56 | Outpatient (CLI) | payer MEDICAID, OTHER ==
--- NOTE | 2024-04-25 20:36 | Ultrasound Report ---
PROCEDURE: OB Anatomy Scan INDICATIONS: SUPERVISION OF OUTSIDE/PRIOR DATING DATA: Last menstrual period (LMP): 11/13/2023. LMP-based estimated date of delivery (SAMPSON): 08/19/2024. First dating scan (date and location): 01/18/2024. Estimated date of delivery (SAMPSON) from first dating scan: 08/11/2024. The below data below was generated using the ultrasound SAMPSON of 08/11/2024 TECHNIQUE: Real-time scanning was performed of the fetus, with image documentation and biometric measurements. Endovaginal scanning: Not performed. COMPARISON: 01/18/2024 FINDINGS: General: A single living intrauterine gestation is present. Presentation: Variable Placenta: Placental position is anterior, without previa. Amniotic fluid index: 16.4 cm, within normal limits for gestational age. Largest pocket 4.8 cm heart rate: 160 beats per minute. Maternal cervical canal: 5.5 cm long; normal length is 2.5 cm or more. biometrics: Biparietal diameter: 5.7 cm, 23 weeks 3 days. 12 percentile. Head circumference: 23.1 cm, 25 weeks 1 day. 56 percentile. Abdominal circumference: 20.9 cm, 25 weeks 3 days. 72nd percentile. Femur length: 4.2 cm, 23 weeks 6 days. 19th percentile. Estimated gestational age from initial scan: 24 weeks 3 days Composite gestational age from present scan: 24 weeks 3 days Estimated weight and percentile: 723 g, 53rd percentile. Measurement variability in biometric dating: +/- 10 days from 12-20 weeks gestation, +/- 2 weeks from 20-30 weeks gestation, +/- 3 weeks at 30 weeks gestation or later. Anatomic survey: Neuro: Ventricles are normal at less than 10 mm. Cisterna magna is normal at 3-11 mm. Cerebellum i s normal in size and morphology. Nuchal skin fold: Not well seen. Face: Nose and lips, facial profile are normal. Spine: No evidence for spina bifida. Heart: 4-chambered heart is present, with normal ventricular outflow tracts. Diaphragm: Diaphragm is intact. Stomach: Left-sided stomach is present. Kidneys: No hydronephrosis. Normal is less than 5 mm in 2nd trimester, less than 7 mm in 3rd trimester. Cord: 3 vessel cord has orthotopic insertion. Bladder: Normal in size. Extremities: All 4 extremities are visualized. Maternal ovaries are unremarkable. IMPRESSION: 1. [place] living intrauterine at 24 weeks 3 days based on today's ultrasound. Fetus is i n the 53rd percentile for weight. 2. Normal placenta and amniotic fluid. 3. Nuchal region is not well seen . Otherwise normal anatomic survey. Reviewed by: Zelalem Tran MD on 04/25/2024 8:35 PM PDT Approved by: Zelalem Tran MD on 04/25/2024 8:35 PM PDT Station ID: [id number]
== END 2024-04-24 15:57 | disposition home or self-care (01) ==
LOC: DI 15:56
PROVIDERS: ATTEND Obstetrics & Gynecology
DX: Z34.82 Encounter for supervision of other normal pregnancy, second trimester (principal)

== ENCOUNTER 2024-05-08 11:21 | Outpatient (CLI) | payer OTHER ==
--- NOTE | 2024-05-08 21:59 | Ultrasound Report ---
PROCEDURE: OB Follow up INDICATIONS: SUPERVISION OF OUTSIDE/PRIOR DATING DATA: Last menstrual period (LMP): 11/13/2023. LMP-based estimated date of delivery (SAMPSON): 08/19/2024. First dating scan (date and location): 01/18/2024. Estimated date of delivery (SAMPSON) from first dating scan: 08/11/2024. The below data below was generated using the ultrasound SAMPSON of 08/11/2024 TECHNIQUE: Real-time scanning was performed of the fetus, with image documentation and biometric measurements. Endovaginal scanning: Not performed. COMPARISON: OB ultrasound 04/24/2024 FINDINGS: General: A single living intrauterine gestation is present. Presentation: Trans- Placenta: Placental position is anterior, without previa. Amniotic fluid index: 14.9 cm, within normal limits for gestational age. heart rate: 147 beats per minute. Maternal cervical canal: 5.9 cm long; normal length is 2.5 cm or more. biometrics: Estimated gestational age from initial scan: 26 weeks 3 days Other: Nuchal region measures 6.3 mm. IMPRESSION: Single live intrauterine with gestational age of 26 weeks 3 days. Reviewed by: Reshma Vitale MD on 05/08/2024 9:58 PM PDT Approved by: Reshma Vitale MD on 05/08/2024 9:58 PM PDT Station ID: [id number]
== END 2024-05-08 11:22 | disposition home or self-care (01) ==
LOC: DI 11:21
PROVIDERS: ATTEND Obstetrics & Gynecology
DX: Z34.82 Encounter for supervision of other normal pregnancy, second trimester (principal)

== ENCOUNTER 2024-05-26 11:05 | Outpatient (CLI) | payer OTHER ==
[2024-05-26 12:28] LABS: HGB - HEMOGLOBIN 10.4 g/dL (12.0-16.0); MEAN CORPUSCULAR HGB CONC 32.5 g/dL (32.0-36.0); MEAN CORPUSCULAR VOLUME 95.5 fL (81.0-99.0); MEAN PLATELET VOLUME 9.4 fL (7.9-10.8); RED BLOOD COUNT 3.35 10^6/uL (4.20-5.40); RED CELL DISTRIBUTION WIDTH 13.8 % (12.0-15.0); WHITE BLOOD COUNT 13.4 x10^3/uL (4.8-10.8)
[2024-05-27 06:10] LABS: RPR Non Reactive (Non Reactive)
== END 2024-05-26 11:06 | disposition home or self-care (01) ==
LOC: LAB 11:05
PROVIDERS: ATTEND Nurse Practitioner
DX: Z34.80 Encounter for supervision of other normal pregnancy, unspecified trimester (principal)
CPT/HCPCS: 36415; 82950; 85027; 86592

== ENCOUNTER 2024-07-04 05:46 | Outpatient (CLI) | payer OTHER ==
[2024-07-04 06:16] LABS: RUPTURE OF MEMBRANES PLUS POSITIVE (NEGATIVE)
[2024-07-04] MEDS: BETAMETHASONE 30 MG/5 ML VIAL IM ONE (06:46)
[2024-07-04] MEDS: LACTATED RINGERS 1,000 ML IV ONE (06:53)
[2024-07-04] MEDS: AMPICILLIN 2 GM in SODIUM CHLORIDE 0.9% MINIBAG 100 ML IV SCH (07:37)
--- NOTE | 2024-07-04 07:45 | PROVIDER PROGRESS NOTE ---
- HPI Chief Complaint: Labor Current : Vital Signs Temperature 100.2 F 07/04/24 05:58 Heart Rate 83 07/04/24 05:58 Respiratory Rate 16 07/04/24 05:58 Blood Pressure 107/55 L 07/04/24 05:58 Temperature 100.2 F 07/04/24 05:58 Heart Rate 83 07/04/24 05:58 Respiratory Rate 16 07/04/24 05:58 Blood Pressure 107/55 L 07/04/24 05:58 O2 Saturation If not protocol: Oxygen Flow, liters/minute - Procedures OB Procedure Performed: NST Diagnosis/Indication for NST: labor NST Procedure: NST Procedure Start Time 00:44 Stop Time 01:10 EFM: 150s, moderate variability, no decelerations, positive accelerations Stanley: no contractions NST reactive/Cat 1 Performed and read 07/04/24 Service Date of procedure: 07/04/24 - Plan Plan: 39yo at 33.3w presents with concern of leaking fluid today 07/04/24 0400. Occasional cramping, no bleeding. Good movement. History of CD x3 at term. She was admitted at [facility] a few weeks ago for contractions and given betamethasone and magnesium sulfate. NKDA Meds: vitamins, Zofran prn Med: Denies Surg: CD x3, cholecystectomy Fam: Mother-lymphoma, cardiac Social: Denies ABHILASH VSS. Initial temperate documented 100.2, this was repeated and she was afebrile. No Tylenol or other was given. GEN: NAD CV: Regular rate Resp: Breathing unlabored Abd: soft, nt Ext: nt SVE: closed/th/-3 Speculum: pooling clear fluid ROMPlus POS Bedside US: Transverse, head maternal left 39yo at 33.3w with PPROM - Appreciate acceptance of transfer to [facility], awaiting transfer now - Betamethasone 12mg x1 rescue dose given 0700 - Azithromycin and ampicillin given at - GBS collected - Informed consent for transfer obtained - Plan [facility] delivery at [facility]
[2024-07-04 07:46] LABS: BASOPHILS % (AUTO) 0.3 %; EOSINOPHILS # (AUTO) 0.1 10^3/uL (0.0-0.7); EOSINOPHILS % (AUTO) 0.5 %; HCT - HEMATOCRIT 34.3 % (37.0-47.0); HGB - HEMOGLOBIN 11.3 g/dL (12.0-16.0); LYMPHOCYTES # (AUTO) 2.2 10^3/uL (1.5-3.5); MEAN CORPUSCULAR HEMOGLOBIN 30.3 pg (27.0-31.0); MEAN CORPUSCULAR HGB CONC 32.9 g/dL (32.0-36.0); MEAN PLATELET VOLUME 10.1 fL (7.9-10.8); MONOCYTES # (AUTO) 1.1 10^3/uL (0.0-1.0); MONOCYTES % (AUTO) 8.1 %; NEUTROPHILS # (AUTO) 9.6 10^3/uL (1.5-6.6); NEUTROPHILS % (AUTO) 73.3 %; PLT - PLATELET COUNT 311 10^3/uL (130-450); RED BLOOD COUNT 3.73 10^6/uL (4.20-5.40); RED CELL DISTRIBUTION WIDTH 14.3 % (12.0-15.0); WHITE BLOOD COUNT 13.1 x10^3/uL (4.8-10.8)
[2024-07-04] MEDS: AZITHROMYCIN 250 MG TABLET PO STA (07:53)
[2024-07-04 08:09] VITALS: BP 106/59; O2SAT 98
== END 2024-07-04 08:45 | disposition short-term general hospital (02) ==
LOC: WFO 05:46 → FBP 05:47 → WFO 08:45
PROVIDERS: ATTEND Obstetrics & Gynecology
DX: O42.913 Preterm premature rupture of membranes, unspecified as to length of time between rupture and onset of labor, third trimester (principal); Z3A.33 33 weeks gestation of pregnancy
CPT/HCPCS: 36415; 59025; 84112; 85025; 87797; 96372; 96374; 99215; A9270

== ENCOUNTER 2024-07-04 08:54 | Outpatient (CLI) | payer OTHER | END 2024-07-04 23:59 | disposition short-term general hospital (02) | LOC: EMS 08:54 | PROVIDERS: ATTEND Obstetrics & Gynecology | DX: O42.913 Preterm premature rupture of membranes, unspecified as to length of time between rupture and onset of labor, third trimester (principal); Z3A.33 33 weeks gestation of pregnancy | CPT/HCPCS: A0425; A0426 ==